=== PATIENT | female | born 1955 | race Caucasian/White ===

== ENCOUNTER 2019-05-07 10:53 | Emergency (ER) | payer OTHER ==
--- OUTSIDE RECORDS SUMMARY | 2019-05-07 10:55 | XMS REPORT ---
:1955 [facility] Address [address] [place] [address] [address]. Ab[address] [place] [address] Care Team Providers Name Role Phone Unavailable Unavailable Unavailable Problems This patient has no known problems. Allergies, Adverse Reactions, Alerts This patient has no known allergies or adverse reactions. Medications This patient has no known medications.
--- NOTE | 2019-05-07 11:46 | EDPHYS ---
Physician Documentation [facility] Name: Gisele Pepe Age: 63 yrs Sex: Female : 1955 Arrival Date: 05/07/2019 Time: 10:56 Bed 14 Private MD: ED Physician Dave Fulton HPI: 05/07 11:41 This 63 yrs old Female presents to ER via Ambulatory with complaints of Foot jr8 Injury. 11:41 The patient presents with pain, swelling, tenderness. The complaints affect the dorsum jr8 of left foot. Context: The problem was sustained at home, resulted from a direct blow, the patient can fully bear weight, the patient is able to ambulate. Onset: The symptoms/episode began/occurred acutely, last night. Modifying factors: The symptoms are alleviated by nothing. the symptoms are aggravated by movement. Associated signs and symptoms: The patient has no apparent associated signs or symptoms. Treatment prior to arrival includes: no previous treatment. Severity of symptoms: At their worst the symptoms were mild, in the emergency department the symptoms are unchanged. The patient has not experienced similar symptoms in the past. The patient has not recently seen a physician. Patient stated that a board fell on her foot last night. This morning swelling started with bruising and mild tenderness . Historical: - Allergies: 11:03 tramadol; hb - Home Meds: 11:03 None [Active]; hb - PMHx: 11:03 None; hb - PSHx: 11:03 Back; ; Appendectomy; hb - Immunization history:: Adult Immunizations up to date. - Social history:: Smoking status: Patient/guardian denies using tobacco. - Ebola Screening: : No symptoms or risks identified at this time. ROS: 11:41 Eyes: Negative for injury, pain, redness, and discharge, ENT: Negative for injury, jr8 pain, and discharge, Neck: Negative for injury, pain, and swelling, Cardiovascular: Negative for chest pain, palpitations, and edema, Respiratory: Negative for shortness of breath, cough, wheezing, and pleuritic chest pain, Abdomen/GI: Negative for abdominal pain, nausea, vomiting, diarrhea, and constipation, Back: Negative for injury and pain, Skin: Negative for injury, rash, and discoloration, Neuro: Negative for headache, weakness, numbness, tingling, and seizure. 11:41 MS/extremity: Positive for ecchymosis, pain, swelling, tenderness, of the dorsum of left foot. Exam: 11:41 Eyes: Pupils equal round and reactive to light, extra-ocular motions intact. Lids and jr8 lashes normal. Conjunctiva and sclera are non-icteric and not injected. Cornea within normal limits. Periorbital areas with no swelling, redness, or edema. ENT: Nares patent. No nasal discharge, no septal abnormalities noted. Tympanic membranes are normal and external auditory canals are clear. Oropharynx with no redness, swelling, or masses, exudates, or evidence of obstruction, uvula midline. Mucous membranes moist. Neck: Trachea midline, no thyromegaly or masses palpated, and no cervical lymphadenopathy. Supple, full range of motion without nuchal rigidity, or vertebral point tenderness. No Meningismus. Cardiovascular: Regular rate and rhythm with a normal S1 and S2. No gallops, murmurs, or rubs. Normal PMI, no JVD. No pulse deficits. Respiratory: Lungs have equal breath sounds bilaterally, clear to auscultation and percussion. No rales, rhonchi or wheezes noted. No increased work of breathing, no retractions or nasal flaring. Abdomen/GI: Soft, non-tender, with normal bowel sounds. No distension or tympany. No guarding or rebound. No evidence of tenderness throughout. Back: No spinal tenderness. No costovertebral tenderness. Full range of motion. Skin: Warm, dry with normal turgor. Normal color with no rashes, no lesions, and no evidence of cellulitis. Neuro: Awake and alert, GCS 15, oriented to person, place, time, and situation. Cranial nerves II-XII grossly intact. Motor strength 5/5 in all extremities. Sensory grossly intact. Cerebellar exam normal. Normal gait. 11:41 Musculoskeletal/extremity: Extremities: grossly normal except: noted in the dorsum of left foot: ecchymosis, pain, swelling, tenderness, ROM: intact in all extremities, Circulation is intact in all extremities. Sensation intact. Vital Signs: 11:03 BP 150 / 62; Pulse 69; Resp 16; Temp 98.1; Pulse Ox 98% on R/A; Weight 66.22 kg; Height hb 5 ft. 3 in. (160.02 cm); Pain 10; 11:03 Body Mass Index 25.86 (66.22 kg, 160.02 cm) [facility]: 11:00 Patient medically screened. jr8 11:41 Data reviewed: vital signs, nurses notes, radiologic studies, plain films, and as a jr8 result, I will discharge patient. Data interpreted: Pulse oximetry: on room air is 98 %. Interpretation: normal. Counseling: I had a detailed discussion with the patient and/or guardian regarding: the historical points, exam findings, and any diagnostic results supporting the discharge/admit diagnosis, radiology results, the need for outpatient follow up, a family practitioner, to return to the emergency department if symptoms worsen or persist or if there are any questions or concerns that arise at home. 05/07 11:04 Order name: XRAY Foot LEFT 3 View; Complete Time: 12:08 jr8 Administered Medications: No medications were administered Disposition: 13:20 Co-signature as Attending Physician, Dave Fulton MD. Disposition: 05/07/19 11:44 Discharged to Home. Impression: Contusion of left foot. - Condition is Stable. - Discharge Instructions: Foot Contusion. - Prescriptions for Ibuprofen 800 mg Oral Tablet - take 1 tablet by ORAL route every 12 hours As needed take with food; 20 tablet. - Medication Reconciliation Form, Thank You Letter, Antibiotic Education, Prescription Opioid Use form. - Follow up: Private Physician; When: As needed; Reason: Recheck today's complaints, Continuance of care, Re-evaluation by your physician. - Problem is new. - Symptoms have improved. Signatures: Dispatcher [employer] EDMS Rd Barrett PA PA jr8 Destiny Gutierrez RN RN Adrianna Rhoades Dave Fulton MD MD Corrections: (The following items were deleted from the chart) 12:10 11:44 05/07/2019 11:44 Discharged to Home. Impression: Contusion of left foot. Condition is Stable. Forms are Medication Reconciliation Form, Thank You Letter, Antibiotic Education, Prescription Opioid Use. Follow up: Private Physician; When: As needed; Reason: Recheck today's complaints, Continuance of care, Re-evaluation by your physician. Problem is new. Symptoms have improved. jr8
--- NOTE | 2019-05-07 11:46 | ER ---
Nurse's Notes [facility] Name: Gisele Pepe Age: 63 yrs Sex: Female : 1955 Arrival Date: 05/07/2019 Time: 10:56 Bed 14 Private MD: Diagnosis: Contusion of left foot Presentation: 05/07 11:01 Presenting complaint: Left foot pain and swelling after dropping wooden board on foot hb yesterday. Transition of care: patient was not received from another setting of care. Onset of symptoms was May 06, 2019. Risk Assessment: Do you want to hurt yourself or someone else? Patient reports no desire to harm self or others. Care prior to arrival: None. 11:01 Method Of Arrival: Ambulatory hb 11:01 Acuity: STEPHEN 4 hb 11:16 Initial Sepsis Screen: Does the patient meet any 2 criteria? No. Patient's initial sepsis screen is negative. Does the patient have a suspected source of infection? No. Patient's initial sepsis screen is negative. Triage Assessment: 11:14 General: Appears in no apparent distress. Pain: Denies pain. Musculoskeletal: Range of wh motion: intact in all extremities, Swelling present in left foot Reports pain in dorsum of left foot since this morning after dropping footboard on Left foot yesterday. Injury Description: swelling. 11:16 General: Behavior is calm, cooperative, appropriate for age. wh Historical: - Allergies: 11:03 tramadol; hb - Home Meds: 11:03 None [Active]; hb - PMHx: 11:03 None; hb - PSHx: 11:03 Back; ; Appendectomy; hb - Immunization history:: Adult Immunizations up to date. - Social history:: Smoking status: Patient/guardian denies using tobacco. - Ebola Screening: : No symptoms or risks identified at this time. Screenin:04 Abuse screen: Denies threats or abuse. Denies injuries from another. Nutritional hb screening: No deficits noted. Tuberculosis screening: No symptoms or risk factors identified. Fall Risk None identified. Assessment: 11:17 General: Appears in no apparent distress. Behavior is calm, cooperative, appropriate wh for age. Pain: Denies pain. Neuro: Level of Consciousness is awake, alert, obeys commands. Cardiovascular: Capillary refill < 3 seconds. Respiratory: Airway is patent Respiratory effort is even, unlabored, Respiratory pattern is regular, symmetrical. GI: Abdomen is flat, non-distended. : No signs and/or symptoms were reported regarding the genitourinary system. EENT: No signs and/or symptoms were reported regarding the EENT system. Derm: Skin is intact, is healthy with good turgor, Skin is pink, warm \T\ dry. normal. Musculoskeletal: Range of motion: intact in all extremities, Swelling present in dorsum of left foot. Vital Signs: 11:03 BP 150 / 62; Pulse 69; Resp 16; Temp 98.1; Pulse Ox 98% on R/A; Weight 66.22 kg; Height hb 5 ft. 3 in. (160.02 cm); Pain 10; 11:03 Body Mass Index 25.86 (66.22 kg, 160.02 cm) hb ED Course: 10:56 Patient arrived in ED. mr 11:00 Rd Barrett PA is PHCP. [facility] 11:00 Dave Fulton MD is Attending Physician. [facility] 11:02 Triage completed. hb 11:03 Arm band placed on. hb 11:11 Adrianna Rhoades is Primary Nurse. 11:16 Patient has correct armband on for positive identification. Bed in low position. Call light in reach. Side rails up X 1. Pulse ox on. NIBP on. 11:16 No provider procedures requiring assistance completed. 11:30 X-ray completed. Portable x-ray completed in exam room. Patient tolerated procedure jb2 well. 11:32 XRAY Foot LEFT 3 View In Process Unspecified. EDMA 12:10 Patient did not have IV access during this emergency room visit. Administered Medications: No medications were administered Outcome: 11:44 Discharge ordered by . jr8 12:00 Discharged to home via wheelchair. 12:00 Condition: good 12:00 Discharge instructions given to patient, Instructed on discharge instructions, follow up and referral plans. medication usage, POC Foot contussion Demonstrated understanding of instructions, follow-up care, medications, POC Prescriptions given X 1. 12:10 Patient left the ED. Signatures: Dispatcher [employer] EDMA Marita Leger Bruce jb2 Rd Barrett PA PA jr8 Destiny Gutierrez RN RN hb [place], Adrianna wh
--- NOTE | 2019-05-07 11:48 | RAD REPORT ---
EXAM DESCRIPTION: RAD - Foot Left 3 View - 05/07/2019 11:30 am CLINICAL HISTORY: Left Foot pain status post fall FINDINGS: No fracture or dislocation is seen. Hallux valgus deformity with soft tissue swelling adjacent to the first MTP joint Osteoporosis. Large calcaneal spur
== END 2019-05-07 12:10 | disposition home or self-care (01) ==
LOC: ER 10:53
DX: S90.32XA Contusion of left foot, initial encounter (principal); W22.8XXA Striking against or struck by other objects, initial encounter; Y93.9 Activity, unspecified; Y92.009 Unspecified place in unspecified non-institutional (private) residence as the place of occurrence of the external cause; Z88.5 Allergy status to narcotic agent
CPT/HCPCS: 99283

== ENCOUNTER 2019-08-27 08:50 | Emergency (ER) | payer OTHER ==
[2019-08-27] MEDS ORDERED: HYDROCODONE/APAP 7.5/325 MG TAB ONE (09:12)
[2019-08-27] MEDS ORDERED: KETOROLAC 30 MG/ML INJ ONE (10:07)
--- NOTE | 2019-08-27 10:11 | RAD REPORT ---
EXAM DESCRIPTION: CT - Spine Lumbar Wo Con - 08/27/2019 9:58 am CLINICAL HISTORY: Back pain, left lower extremity radiculopathy COMPARISON: None. TECHNIQUE: Thin section axial imaging of the lumbar spine was performed. Sagittal and coronal recon struction images were generated and reviewed. All CT scans are performed using dose optimization technique as appropriate and may include automated exposure control or mA/KV adjustment according to patient size. FINDINGS: Lumbar bodies are normal in height. Scattered osteopenic changes are present. No clearly p athologic bone process. No compression fracture. Left-sided L5 spondylolysis is present with severe bilateral facet joint degenerative change at L5-S1 . There is grade 2 spondylolisthesis. Central spinal stenosis to 7-8 mm noted the superior endplate S 1 level. S1 lateral recess stenosis is present more so on the right. The L5-S1 disc space is narrowed with degenerative gas present. The remaining disc levels show no herniation or significant degree of disc bulge. No canal or signifi cant foramen stenoses. Central canal and foramen detail is inherently limited on CT imaging. Significant T12-L1 disc space narrowing present. Degenerative gas is present in the disc space with a nterior sclerotic and spurring changes. Moderate facet degenerative change at L4-5. IMPRESSION: No fracture or pathologic bone process identified. Patient has left-side L5 spondylolysis, severe bilateral facet joint degenerative change and grade 2 spondylolisthesis. These findings result in spinal stenosis to 7-8 mm at the superior S1 level as wel l as S1 lateral recess stenosis. Bilateral L5-S1 foraminal stenosis is likely present. Remainder the exam shows scattered degenerative change but no other significant finding.
--- NOTE | 2019-08-27 10:14 | RAD REPORT ---
EXAM DESCRIPTION: CT - Pelvis Wo Cont - 08/27/2019 9:57 am CLINICAL HISTORY: TRAUMA Back pain, left hip pain COMPARISON: None. TECHNIQUE: Axial 2 millimeter thick images of the pelvis were obtained. Sagittal and coronal reforma tted images were generated and reviewed. The CT scan was performed using dose optimization techniques as appropriate to a performed exam incl uding one or more of the following: Automated exposure control, adjustment of the mA and/or kV accord ing to patient size (this includes techniques or standardized protocols for targeted exams where dose is matched to indication/reason for exam) and use of iterative reconstruction technique. FINDINGS: Lumbar spine and L5-S1 findings are detailed in a separate report. Moderate SI joint degenerative changes are present. No fracture or acute finding of the sacral ala. N o pathologic bone process of the bony pelvis. No fractures identified. No fracture or dislocation of either proximal femur. No AVN or focal femoral head abnormality. No joint effusions or periarticular abnormalities identifiable. Skeletal musculature is symmetric. Postsurgical changes are evident in the lower abdominal wall. Pelv ic floor laxity is present. Uterus is absent. IMPRESSION: No fracture or acute bony pelvis abnormality. No acute or significant left hip joint fin ding. Pelvic floor prolapse.
--- NOTE | 2019-08-27 10:23 | ER ---
Nurse's Notes [facility] Name: Gisele Pepe Age: 64 yrs Sex: Female : 1955 Arrival Date: 08/27/2019 Time: 08:53 Bed 6 Private MD: Diagnosis: Low back pain Presentation: 08/27 08:59 Presenting complaint: Patient states: "I bumped my back and left hip on the counter aa5 yesterday and I've been hurting since then". Pt c/o lower back pain and left hip. Pt appears uncomfortable. Pt states "I am supposed to be having a pelvic anglican surgery on Saturday". 08:59 Transition of care: patient was not received from another setting of care. Onset of aa5 symptoms was August 2019. Risk Assessment: Do you want to hurt yourself or someone else? Patient reports no desire to harm self or others. Care prior to arrival: None. 08:59 Acuity: STEPHEN 3 aa5 08:59 Method Of Arrival: Ambulatory aa5 09:00 Initial Sepsis Screen: Does the patient meet any 2 criteria? No. Patient's initial aa5 sepsis screen is negative. Does the patient have a suspected source of infection? No. Patient's initial sepsis screen is negative. Historical: - Allergies: 09:00 tramadol (blistering ); aa5 - Home Meds: 09:00 None [Active]; aa5 - PMHx: 09:00 None; aa5 - PSHx: 09:00 Back; ; Appendectomy; aa5 - Ebola Screening: : No symptoms or risks identified at this time. Screenin:25 Abuse screen: Denies threats or abuse. Nutritional screening: No deficits noted. aa5 Tuberculosis screening: No symptoms or risk factors identified. Fall Risk None identified. Assessment: 09:00 General: Appears uncomfortable, Behavior is calm, cooperative. Pain: Complains of pain aa5 in lumbar area and left hip Pain does not radiate. Pain currently is 10 out of 10 on a pain scale. Quality of pain is described as sharp, shooting, Pain began 1 day ago. Is continuous, Aggravated by increased activity. Neuro: Level of Consciousness is awake, alert, obeys commands, Oriented to person, place, time, situation. Cardiovascular: Patient's skin is warm and dry. Respiratory: Airway is patent Respiratory effort is even, unlabored, Respiratory pattern is regular, symmetrical. GI: No signs and/or symptoms were reported involving the gastrointestinal system. : No signs and/or symptoms were reported regarding the genitourinary system. EENT: No signs and/or symptoms were reported regarding the EENT system. Derm: Skin is pink, warm \\T\\ dry. Musculoskeletal: Reports pain in left hip. 09:35 Reassessment: Pt to CT . aa5 10:08 Reassessment: Patient is alert, oriented x 3, equal unlabored respirations, skin aa5 warm/dry/pink. Patient states feeling better. Pt states "the pain is a little better but could I get something else please?". [facility] was notified of pt's request. . Pain: Pain currently is 8 out of 10 on a pain scale. 10:35 Reassessment: Patient is alert, oriented x 3, equal unlabored respirations, skin aa5 warm/dry/pink. Patient states feeling better. Vital Signs: 09:05 BP 150 / 91; Pulse 88; Resp 18 S; Temp 98.0(TE); Pulse Ox 99% on R/A; aa5 10:10 BP 143 / 88; Pulse 82; Resp 16 S; Pulse Ox 99% on R/A; aa5 ED Course: 08:53 Patient arrived in ED. mr 08:59 Arm band placed on Patient placed in an exam room, on a stretcher. aa5 08:59 Patient has correct armband on for positive identification. Placed in gown. Bed in low aa5 position. Call light in reach. Side rails up X 1. 09:00 Sherry Gonsales FNP-C is PHCP. kb 09:00 Dave Fulton MD is Attending Physician. kb 09:07 Lora Ojeda, DRU is Primary Nurse. aa5 09:08 Triage completed. aa5 09:45 No provider procedures requiring assistance completed. aa5 09:58 CT Lumbar Spine Wo Con In Process Unspecified. EDMS 09:58 CT Pelvis wo Cont In Process Unspecified. EDMS 10:36 Patient did not have IV access during this emergency room visit. aa5 Administered Medications: 09:19 Drug: [place] (7.5 mg-325 mg) 1 tabs Route: PO; aa5 10:08 Follow up: Response: No adverse reaction; Pain is decreased aa5 10:09 Drug: TORadol 30 mg Route: IM; Site: right deltoid; aa5 10:35 Follow up: Response: No adverse reaction aa5 Outcome: 10:23 Discharge ordered by . franklin 10:35 Discharged to home ambulatory, with significant other. aa5 10:35 Condition: improved 10:35 Discharge instructions given to patient, Instructed on discharge instructions, follow up and referral plans. medication usage, Demonstrated understanding of instructions, follow-up care, medications, Prescriptions given X 1. 10:36 Patient left the ED. aa5 Signatures: Dispatcher [employer] EDMS Sherry Gonsales, BILLING AND INSURANCE COORDINATOR-C BILLING AND INSURANCE COORDINATOR-Marita Martines mr OjedaLora, RN RN aa5 Corrections: (The following items were deleted from the chart) 10:10 09:00 Pain: Complains of pain in lumbar area and left hip Pain does not radiate. aa5 Quality of pain is described as sharp, shooting, Pain began 1 day ago. Is continuous, Aggravated by increased activity, aa5 10:54 10:46 Patient left the ED. aa5 aa5
--- NOTE | 2019-08-27 10:24 | EDPHYS ---
Physician Documentation [facility] Name: Gisele Pepe Age: 64 yrs Sex: Female : 1955 Arrival Date: 08/27/2019 Time: 08:53 Bed 6 Private MD: ED Physician Dave Fulton HPI: 08/27 10:20 This 64 yrs old Female presents to ER via Ambulatory with complaints of Back kb Pain. 10:20 The patient presents with pain that is acute. The symptoms are located in the lumbar kb area. Onset: The symptoms/episode began/occurred yesterday. The pain does not radiate. Associated signs and symptoms: The patient has no apparent associated signs or symptoms. The problem was sustained from a direct blow. Modifying factors: The patient symptoms are alleviated by nothing, the patient symptoms are aggravated by any movement. Severity of symptoms: At their worst the symptoms were moderate, in the emergency department the symptoms are unchanged. The patient has not experienced similar symptoms in the past. The patient has not recently seen a physician. Pt reports lumbar back pain and left hip pain that started yesterday after running into a counter. States "Ifelt everything shift." Pt standing during exam because she says it is too painful to sit and stand again. Pt ambulatory with steady gait. Historical: - Allergies: 09:00 tramadol (blistering ); aa5 - Home Meds: 09:00 None [Active]; aa5 - PMHx: 09:00 None; aa5 - PSHx: 09:00 Back; ; Appendectomy; aa5 - Ebola Screening: : No symptoms or risks identified at this time. ROS: 10:19 Constitutional: Negative for fever, chills, and weight loss, Cardiovascular: Negative kb for chest pain, palpitations, and edema, Respiratory: Negative for shortness of breath, cough, wheezing, and pleuritic chest pain, Abdomen/GI: Negative for abdominal pain, nausea, vomiting, diarrhea, and constipation, : Negative for injury, bleeding, discharge, and swelling, Skin: Negative for injury, rash, and discoloration, Neuro: Negative for headache, weakness, numbness, tingling, and seizure. 10:19 Back: Positive for pain at rest, pain with movement, of the lumbar area. 10:19 MS/extremity: Positive for decreased range of motion, pain, tenderness. Exam: 10:19 Constitutional: This is a well developed, well nourished patient who is awake, alert, kb and in no acute distress. Head/Face: Normocephalic, atraumatic. ENT: Nares patent. No nasal discharge, no septal abnormalities noted. Tympanic membranes are normal and external auditory canals are clear. Oropharynx with no redness, swelling, or masses, exudates, or evidence of obstruction, uvula midline. Mucous membranes moist. Neck: Trachea midline, no thyromegaly or masses palpated, and no cervical lymphadenopathy. Supple, full range of motion without nuchal rigidity, or vertebral point tenderness. No Meningismus. Chest/axilla: Normal chest wall appearance and motion. Nontender with no deformity. No lesions are appreciated. Cardiovascular: Regular rate and rhythm with a normal S1 and S2. No gallops, murmurs, or rubs. Normal PMI, no JVD. No pulse deficits. Respiratory: Lungs have equal breath sounds bilaterally, clear to auscultation and percussion. No rales, rhonchi or wheezes noted. No increased work of breathing, no retractions or nasal flaring. Abdomen/GI: Soft, non-tender, with normal bowel sounds. No distension or tympany. No guarding or rebound. No evidence of tenderness throughout. Skin: Warm, dry with normal turgor. Normal color with no rashes, no lesions, and no evidence of cellulitis. MS/ Extremity: Pulses equal, no cyanosis. Neurovascular intact. Full, normal range of motion. Neuro: Awake and alert, GCS 15, oriented to person, place, time, and situation. Cranial nerves II-XII grossly intact. Motor strength 5/5 in all extremities. Sensory grossly intact. Cerebellar exam normal. Normal gait. 10:19 Back: pain, that is moderate, of the lumbar area, ROM is normal, normal spinal alignment noted. Vital Signs: 09:05 BP 150 / 91; Pulse 88; Resp 18 S; Temp 98.0(TE); Pulse Ox 99% on R/A; aa5 10:10 BP 143 / 88; Pulse 82; Resp 16 S; Pulse Ox 99% on R/A; aa5 MDM: 09:01 Patient medically screened. kb 10:19 Data reviewed: vital signs, nurses notes. Data interpreted: Pulse oximetry: on room air kb is 99 %. Interpretation: normal. Counseling: I had a detailed discussion with the patient and/or guardian regarding: the historical points, exam findings, and any diagnostic results supporting the discharge/admit diagnosis, radiology results, the need for outpatient follow up, a family practitioner, to return to the emergency department if symptoms worsen or persist or if there are any questions or concerns that arise at home. 08/27 09:05 Order name: CT Lumbar Spine Wo Con; Complete Time: 10:14 kb 08/27 09:05 Order name: CT Pelvis wo Cont; Complete Time: 10:17 kb Administered Medications: 09:19 Drug: [place] (7.5 mg-325 mg) 1 tabs Route: PO; aa5 10:08 Follow up: Response: No adverse reaction; Pain is decreased aa5 10:09 Drug: TORadol 30 mg Route: IM; Site: right deltoid; aa5 10:35 Follow up: Response: No adverse reaction aa5 Disposition: 08/27/19 10:23 Discharged to Home. Impression: Low back pain. - Condition is Stable. - Discharge Instructions: Back Injury Prevention, Nwju-fw-Bevd, Back Pain, Adult, Uknl-bz-Rqzn, Back Exercises, Gniq-lj-Ynzs. - Prescriptions for Skelaxin 800 mg Oral Tablet - take 1 tablet by ORAL route every 8 hours As needed; 30 tablet. - Medication Reconciliation Form, Thank You Letter, Antibiotic Education, Prescription Opioid Use form. - Follow up: Emergency Department; When: As needed; Reason: Worsening of condition. Follow up: Private Physician; When: 2 - 3 days; Reason: Recheck today's complaints, Continuance of care, Re-evaluation by your physician. Addendum: 08/28/2019 15:28 Co-signature as Attending Physician, Dave Fulton MD. g s Signatures: Dispatcher [employer] Sherry Freeman FNP-C FNP-Lora Hong RN RN aa5 Dave Fulton MD MD Corrections: (The following items were deleted from the chart) 08/27 10:46 10:23 08/27/2019 10:23 Discharged to Home. Impression: Low back pain. Condition is aa5 Stable. Forms are Medication Reconciliation Form, Thank You Letter, Antibiotic Education, Prescription Opioid Use. Follow up: Emergency Department; When: As needed; Reason: Worsening of condition. Follow up: Private Physician; When: 2 - 3 days; Reason: Recheck today's complaints, Continuance of care, Re-evaluation by your physician. kb
[2019-08-27 10:51] VITALS: BP 150/91; TEMP 98; O2SAT 99
== END 2019-08-27 10:46 | disposition home or self-care (01) ==
LOC: ER 08:50
DX: M54.5 Low back pain (principal); Z88.5 Allergy status to narcotic agent
CPT/HCPCS: 72131; 72192; 96372; 99283

== ENCOUNTER 2020-11-28 12:22 | Day surgery (SDC) | payer OTHER ==
--- OUTSIDE RECORDS SUMMARY | 2020-11-28 12:36 | XMS REPORT | Continuity of Care Document ---
:1955 Author Organization [facility] t Address [address] [place] [address] Care Team Providers Name Role Phone Erum WAGNER L Attending Clinician Payers Payer Name Policy Type Policy Number Effective Date Expiration Date S ource Problems This patient has no known problems. Allergies, Adverse Reactions, Alerts Allergy Allergy Status Severity Reaction(s) Onset Inactive Treating Comm ents Source Name Type Date Date Clinician tramadol DA Active U 2018-11 [facility] [place] Medications This patient has no known medications. Procedures This patient has no known procedures. Encounters Start End Encounter Admission Attending Care Care Encounter Source Date/Time Date/Time Type Type Clinicians Facility Department ID 2019-06-10 2019-06-10 [facility] [id number] 13:25:15 23:59:00 Encounter [email or web address] [id number] Surgical [id number] Specialti [phone] es [address] 2019-06-10 2019-06-10 Office [facility] [id number] 12:45:41 14:39:18 Visit Emery Phel[email or web address] [id number] Surgical [id number] Specialti [phone] es [address] [place] Results Test Description Test Time Test Comments Results Result [facility] e Comments FALLOPIAN 2019-09-04 TUBE,STERILIZATION 13:24:00 --------RUN DATE: 09/07/19 [facility] PAGE 1 RUN TIME: 632 Specimen Inquiry RUN USER: INTERFACE --------PATIENT: BILL ANN LOC: U #: [id number] AGE/SX: 64/F ROOM: [facility] RE09/02/19REG DR: Alfredito Reid MD : [birth year] BED: A DIS: 09/03/19 STATUS: DIS Lisbeth TLOC: -------- SPEC #: [id number] RECD: 09/02/19 STATUS: TESHA GUZMAN #: [id number] CARMEL: 09/02/19- SUBM DR: Alfredito Reid MD ENTERED: 09/03/19 SP TYPE: SEDGEWICKVILLET JULIAN DR: ORDERED: LEVEL II SURGIC CODES: [id number] - FALLOPIAN TUBE PROCEDURES: LEVEL II SURGIC (Incomplete) TISSUES: FALLOPIAN TUBE, NOS - BILATERAL FALLOPIAN TUBES AND OVARIES CLINICAL HISTORY 64 year old, prolapse of vaginal vault (wpd) FINAL DIAGNOSIS Bilateral fallopian tubes and ovaries, salpingo-oophorectomy : bilateral fallopian tubes - no significant pathologic alteration bilateral ovaries - benign cellular fibroma, 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 The specimen consists of fimbriated fallopian tubes (1.5 and 2.5 cm in length) and ovaries (1.8 and 2.5 cm). The outer surfaces are pink-purple and hyperemic with multiple adhesions. The fallopian tubes displays pinpoint lumens. The ovarian stroma is álvarez, nodular and firm with multiple corpora albicans. The larger ovary displays a 2.0 cm unilocular cystic structure. The cyst lining is carpeted by multiple álvarez, firm excrescences, 0.3 - 1.0 cm. There are no areas of hemorrhage or necrosis. The lesion appears confined to the cyst. Client Engagement Specialist sections including the entire lesion are submitted as follows: A1 - short segment of fallopian tube and corresponding smaller ovary, A2 through A6 - long segment of fallopian tube and corresponding larger ovary. ruthy/wpd 09/03/19 @ 1030 CONTINUED ON NEXT PAGE --------RUN DATE: 09/07/19 [facility] PAGE 2 RUN TIME: 632 Specimen Inquiry RUN USER: INTERFACE --------SPEC #: [id number] PATIENT: BILL ANN #[id number] (Continued) -------- Signed Juanis Joy MD 09/04/19 1324 -------- END OF REPORT CHEMISTRY 7 PROFILE 2019-09-03 05:15:00 Test Item Value Reference Range Interpretation Comme nts SODIUM (test code = NA) 138 mEq/L 135-145 N POTASSIUM (test code = K) 5.0 mEq/L 3.5-5.0 N CHLORIDE (test code = CL) 104 mEq/L 100-115 N CARBON DIOXIDE (test code = CO2) 26 mEq/L 22-31 N ANION GAP (test code = GAP) 13.30 10-20 N GLUCOSE (test code = GLU) 121 mg/dL 65-110 H BLOOD UREA NITROGEN (test code = BUN) 18 mg/dL 7-18 N GLOMERULAR FILTRATION RATE (test code = GFR) 55 ml/min >60 L CREATININE (test code = CREAT) 1.0 mg/dL 0.5-1.0 N CALCIUM (test code = CA) 7.8 mg/dL 8.4-10.2 L HGB [id number] 04:54:00 Test Item Value Reference Range Interpretation Comments HEMOGLOBIN (test code = HGB) 10.9 g/dL 10.7-13.9 N HEMATOCRIT (test code = HCT) 34.4 % 32.1-42.1 N CHEMISTRY 7 [id number] 14:49:00 Test Item Value Reference Range Interpretation Comments SODIUM (test code = NA) 139 mEq/L 135-145 N POTASSIUM (test code = K) 3.8 mEq/L 3.5-5.0 N CHLORIDE (test code = CL) 103 mEq/L 100-115 N CARBON DIOXIDE (test code = CO2) 27 mEq/L 22-31 N ANION GAP (test code = GAP) 12.60 10-20 N GLUCOSE (test code = GLU) 90 mg/dL 65-110 N BLOOD UREA NITROGEN (test code = 18 mg/dL 7-18 N BUN) GLOMERULAR FILTRATION RATE (test 84 ml/min >60 N code = GFR) CREATININE (test code = CREAT) 0.7 mg/dL 0.5-1.0 N CALCIUM (test code = CA) 8.9 mg/dL 8.4-10.2 N URINALYSIS [id number] 14:39:00 Test Item Value Reference Range Interpretation Comments UA COLOR (test code = COLU) YELLOW YELLOW UA APPEARANCE (test code = APPU) CLEAR CLEAR UA GLUCOSE DIPSTICK (test code = NEGATIVE NEG DGLUU) UA BILIRUBIN DIPSTICK (test code = NEGATIVE NEG BILU) UA KETONE DIPSTICK (test code = NEGATIVE NEG KETU) UA SPECIFIC GRAVITY (test code = 1.012 1.001-1.035 N SGU) UA BLOOD DIPSTICK (test code = YARIEL) 1+ NEG A UA PH DIPSTICK (test code = JAZMIN) 6.0 5-9 UA PROTEIN DIPSTICK (test code = NEGATIVE NEG PROU) UA UROBILINIOGEN DIPSTICK (test 2.0 mg/dL NEG code = URO) UA NITRITE DIPSTICK (test code = NEG NEG JESE) UA LEUKOCYTE ESTERASE DIPSTICK NEG NEG (test code = LEUU) UA WBC (test code = WBCU) 0-2 #/hpf NONE SEEN UA RBC (test code = RBCU) 0-2 #/hpf NONE SEEN UA EPITHELIAL CELLS (test code = FEW #/HPF RARE-FEW EPIU) UA BACTERIA (test code = BACU) RARE /HPF RARE-FEW UA MUCUS (test code = MUCU) RARE NONE SEEN URINE SAMPLE: CLEAN CATCHCBC W/AUTO [id number] 14:31:00 Test Item Value Reference Range Interpretation Comments WHITE BLOOD CELL (test code = WBC) 6.4 K/mm3 6.6-12.1 L RED BLOOD CELL (test code = RBC) 4.48 M/mm3 3.45-5.01 N HEMOGLOBIN (test code = HGB) 12.1 g/dL 10.7-13.9 N HEMATOCRIT (test code = HCT) 39.1 % 32.1-42.1 N MEAN CELL VOLUME (test code = MCV) 87 fL 84.1-94.8 N MEAN CELL HGB (test code = MCH) 27.0 pg 27-35 N MEAN CELL HGB CONCETRATION (test 30.9 gm/dL 32.2-34.1 L code = MCHC) RED CELL DISTRIBUTION WIDTH (test 13.4 % 12.4-16.5 N code = RDW) PLATELET COUNT (test code = PLT) 222 K/mm3 133-385 N IMMATURE PLATELET FRACTION (test 0.0 % 0.0-10.8 N code = IPF) MEAN PLATELET VOLUME (test code = 10.1 fl 9.1-12.7 N MPV) NEUTROPHIL % (test code = NT%) 63.3 % 56.5-79.4 N LYMPHOCYTE % (test code = LY%) 26.7 % 14.3-34.3 N MONOCYTE % (test code = MO%) 7.5 % 5.1-10.4 N EOSINOPHIL % (test code = EO%) 1.7 % 0.1-3.0 N BASOPHIL % (test code = BA%) 0.3 % 0.1-1.0 N NEUTROPHIL # (test code = NT#) 4.1 K/mm3 LYMPHOCYTE # (test code = LY#) 1.7 K/mm3 MONOCYTE # (test code = MO#) 0.5 K/mm3 EOSINOPHIL # (test code = EO#) 0.11 K/mm3 BASOPHIL # (test code = BA#) 0.0 K/mm3 RBC MORPHOLOGY REQUIRED (test code NORMAL NORMAL = RBCM) PLATELET MORPHOLOGY REQUIRED (test NORMAL NORMAL code = PLTMR) - XR CHEST 2 [id number] 13:55:00 Patient Name: BILL ANN Unit No: [id number] EXAMS: CPT CODE: [id number] XR CHEST 2 V 19821 CHEST RADIOGRAPHS - PA AND LATERAL: COMPARISON: None CLINICAL HISTORY: PRE OP The cardiopericardial silhouette is within normal limits. Moderate size retrocardiac hiatal hernia noted with air-fluid level. Lungs are clear. No vascular congestion or pneumothorax. IMPRESSION: No acute pulmonary abnormality. Moderate-sized hiatal hernia. at 1355 Reported and signed by: Chapin Salmon MD CC: Tri Coleman MD; Alfredito Delgado MDTechnologist: Quiana Watson, RT(MRI) Trnscrbd D/ (6839) t.[id number].[id number] Orig Print D/T: S: 08/11/2019 ([id number]) [facility] NAME: BILL ANN Radiology Department PHYS: Alfredito Valera MD [address] : 1955 AGE: 64 SEX: F [place], [place] [address] LOC: [facility] PHONE #: [phone] EXAM DATE: 08/11/2019 STATUS: PRE SDC FAX #: [phone] RAD NO: Page 1 Signed Report
[2020-11-28] MEDS ORDERED: HEPA 1000U/500MLS 2,000 UNIT/1,000 ML BAG IV ONE (12:47)
[2020-11-28] MEDS ORDERED: NA CHLORIDE 0.9% 500 ML ONE ×2 (14:15→17:17)
[2020-11-28] MEDS ORDERED: ATROPINE SULF 1 MG/10 ML SYR IV ONE (16:11)
[2020-11-28] MEDS ORDERED: HEPARIN 5000 UNIT/ML 1 ML VIAL ONE (16:57)
[2020-11-28] MEDS ORDERED: MIDAZOLAM HCL 2 MG/2 ML INJ ONE (16:57)
[2020-11-28] MEDS ORDERED: HEPARIN 10,000 UNIT/10 ML VIAL IV ONE (16:57)
[2020-11-28] MEDS ORDERED: FENTANYL CITR 100 MCG/2 ML ONE (16:57)
[2020-11-28] MEDS ORDERED: VERAPAMIL HCL 10 MG/4 ML VIAL IV ONE (16:57)
--- NOTE | 2020-11-28 17:49 | OP ---
Date of Procedure: 11/28/2020 Surgeon: TESS SPANN Procedures Performed: 1.Selective coronary angiogram. 2.Left heart catheterization. Indications: 1.Congestive heart failure. 2.Unstable angina. Access: Right radial artery 6-Divehi closed with TR band. Complications: None. Bleeding: Less than 5 mL. Anesthesia: Total sedation time was 15 minutes. Description Of Procedure: After risks, benefits, and alternatives were explained to the patient, she agreed to the procedure and she signed informed consent. The patient was brought into the cardiac c atheterization laboratory, prepped and draped in usual sterile fashion. Then, we used fentanyl and V ersed in incremental doses to achieve adequate moderate sedation. Then, we accessed the right radial artery using a pediatric micropuncture kit and then we put a 6-Divehi slender sheath and a 5-Divehi Galena catheter into the aortic root across the aortic valve into the LV, recorded LVEDP and then upon pullback, there was no difference in pressure. Then, I engaged the left main coronary artery, took standard views of the right coronary artery, took standard views, and removed the catheter and the sh eath, and placed TR band with good hemostasis. Findings: 1.Left main is large and normal. 2.LAD, normal proximal, mid and distal portions. 3.LCX, large dominant vessel, no disease. 4.RCA, small nondominant, no disease. 5.LVEDP of 7 mmHg. Impression: 1.Normal coronary arteries. 2.Normal LVEDP of 7 mmHg. Recommendations: Medical management and evaluate for other causes of chest pain. SR/MODL Voice ID: [id number] Report ID: [id number]
[2020-11-28 19:27] VITALS: TEMP 97.1
[2020-11-28 19:37] VITALS: BP 130/58; O2SAT 97
== END 2020-11-28 19:36 | disposition home or self-care (01) ==
LOC: CCL 12:22
PROVIDERS: ATTEND Internal Medicine
DX: I25.110 Atherosclerotic heart disease of native coronary artery with unstable angina pectoris (principal); I50.9 Heart failure, unspecified; Z20.822 Contact with and (suspected) exposure to COVID-19
CPT/HCPCS: 93458; C1893; J1644 ×2; J2250; J3010; J7040 ×2

== ENCOUNTER 2021-09-13 11:58 | Inpatient (IN) | payer OTHER ==
[2021-09-13 14:01] VITALS: BMI 30.1
[2021-09-13] MEDS ORDERED: ACETAMINOPHEN 500 MG TAB PO PRN (14:08)
[2021-09-13] MEDS ORDERED: SODIUM CHLORIDE 0.9% 10ML INJ IV PRN (14:10)
[2021-09-13 14:53] LABS: Absolute Lymphocytes (CBC) 1.1 K/uL (0.7-4.9); Basophils % 0.6 % (0-1.3); Hematocrit 35.5 % (36.0-45.0); Lymphocytes % 25.7 % (15.3-44.8); RBC Red Blood Cell Count 4.18 M/uL (3.86-4.86)
[2021-09-13] MEDS: NA CHLORIDE 0.9% 1,000 ML IV SCH (15:00)
[2021-09-13 15:15] LABS: ALT/SGPT 188 U/L (12-78); AST/SGOT 90 U/L (15-37); Albumin 3.7 g/dL (3.4-5.0); Alkaline Phosphatase 195 U/L (45-117); BUN Blood Urea Nitrogen 14 mg/dL (7-18); Bicarbonate 27 mmol/L (21-32); Bilirubin Total 0.8 mg/dL (0.2-1.0); Glucose Level 99 mg/dL (74-106); Lipase 201 U/L (73-393); Magnesium 2.2 mg/dL (1.8-2.4); NT PRO-BNP 333 pg/mL (<125); Phosphorus 3.5 mg/dL (2.5-4.9); Potassium 3.5 mmol/L (3.5-5.1); Protein, Total 7.6 g/dL (6.4-8.2); Sodium Level 142 mmol/L (136-145); Troponin I < 0.02 ng/mL (0.0-0.045)
[2021-09-13] MEDS ORDERED: PNEUMOCOCCAL VACCINE 0.5 ML IMVAC ONE (19:00)
--- NOTE | 2021-09-13 20:59 | RAD REPORT ---
EXAM DESCRIPTION: MRI - Cholangiogram - 09/13/2021 3:41 pm CLINICAL HISTORY: Cholelithiasis COMPARISON: Abdomen Exam Complete dated 09/12/2021 FINDINGS: Three-dimensional MRCP was performed using maximum intensity projection reconstruction on the same work station. No intrahepatic biliary tree dilatation is seen. The common bile duct is normal caliber without evide nce of retained stone, stricture or mass. The pancreatic duct is not pathologically dilated. Cholelithiasis is present. Limited T2 sequences through the abdomen demonstrates no bulky adenopathy, significant free fluid or abscess. Moderate hiatal hernia. IMPRESSION: Cholelithiasis and but no biliary ductal dilatation or evidence of choledocholithiasis.
[2021-09-13] MEDS: PANTOPRAZOLE 40 MG INJ IVP SCH (21:39)
[2021-09-13] MEDS: MORPHINE 2 MG/ML SYR IV PRN (21:54)
[2021-09-14] MEDS: NA CHLORIDE 0.9% 1,000 ML IV SCH ×3 (00:54→21:56)
[2021-09-14 06:02] LABS: Basophils % 0.6 % (0-1.3); Hematocrit 33.2 % (36.0-45.0); Lymphocytes % 24.7 % (15.3-44.8); RBC Red Blood Cell Count 3.92 M/uL (3.86-4.86)
[2021-09-14 06:08] LABS: Albumin 3.3 g/dL (3.4-5.0); Bilirubin Total 0.8 mg/dL (0.2-1.0); Potassium 3.8 mmol/L (3.5-5.1); Protein, Total 6.6 g/dL (6.4-8.2)
[2021-09-14] MEDS: PANTOPRAZOLE 40 MG INJ IVP SCH ×2 (10:00→21:56)
[2021-09-14] MEDS: MORPHINE 2 MG/ML SYR IV PRN ×3 (10:45→21:57)
[2021-09-14] MEDS: ONDANSETRON 4 MG/2 ML VIAL IV PRN ×3 (10:45→21:58)
[2021-09-14] MEDS ORDERED: propofoL 200 MG/20 ML VIAL IV ONE ×3 (13:20→13:22)
[2021-09-14] MEDS ORDERED: LIDOCAINE 1% MPF 2 ML AMPULE ONE (13:20)
[2021-09-14] MEDS ORDERED: NA CHLORIDE 0.9% 1,000 ML ONE (13:37)
--- NOTE | 2021-09-14 14:30 | ENDO RPT ---
[address], [address] EGD PROCEDURE REPORT EXAM DATE: 09/14/2021 PATIENT NAME: Gisele Pepe MR#: [id number] BIRTHDATE: 1955 ATTENDING: Judd Galarza Dr STATUS: outpatient QUALITY CONTROL CLERK: Lisette WARNER and Rhiannon Lugo RN INDICATIONS: The patient is a 66 yr old Female here for an EGD due to mid epigastric abdominal pain and nausea and vomiting PROCEDURE PERFORMED: EGD with biopsy MEDICATIONS: Per Anesthesia. TOPICAL ANESTHETIC: none CONSENT: The patient understands the risks and benefits of the procedure and understands that these risks include, but are not limited to: sedation, allergic reaction, infection, perforation and/or bleeding. Alternative means of evaluation and treatment include, among others: physical exam, x-rays, and/or surgical intervention. The patient elects to proceed with this endoscopic procedure. DESCRIPTION OF PROCEDURE: During intra-op preparation period all mechanical medical equipment was checked for proper function. Hand hygiene and appropriate measures for infection prevention was taken. Procedure, possible complications, and alternatives including but not limited to the possibility of bleeding, perforation, tear, infection, sepsis, need for surgery, need for blood transfusion, and anesthesia related complications were explained to the patient. After the risks, benefits and alternatives of the procedure were thoroughly explained, Informed consent was verified, confirmed and timeout was successfully executed by the treatment team. The patient was placed in the left lateral position. The patient was anesthetized with topical anesthesia. Through the anesthetized oropharyngeal area, the scope was passed without any difficulty. The [id number] ([id number]) endoscope was introduced through the mouth and advanced to the third portion of the duodenum. Retroflexed views revealed a large hiatal hernia. The gastroscope was then slowly withdrawn and removed. A large hiatal hernia was found (GEJ at 31 cm, DI at 38 cm from the gums). A 5 mm sessile polyp was found in the fundus. With jumbo forceps, a biopsy was obtained and sent to pathology. Mild gastritis was found in the antrum. Multiple biopsies were obtained and sent to pathology. ADVERSE EVENTS: There were no complications. IMPRESSIONS: 1. Large hiatal hernia (7 cm, GEJ at 31 cm, DI at 38 cm from the gums) 2. 5 mm sessile polyp in the fundus in the large hiatal hernia, s/p biopsy 3. Mild gastritis in the antrum, s/p biopsies RECOMMENDATIONS: 1. await biopsy results 2. acid suppression therapy REPEAT EXAM: Judd Galarza Dr eSigned: Judd Galarza Dr 09/14/2021 2:30 PM cc: Hector Zamorano CPT CODES: ICD9 CODES: PATIENT NAME: Gisele Pepe MR#: [id number]
--- NOTE | 2021-09-14 15:24 | CON ---
Date of Consultation: 09/14/2021 Reason For Consultation: Midepigastric pain, nausea and vomiting with positive ultrasound of the abd omen revealing gallstones in gallbladder. History Of Present Illness: The patient is a 66-year-old white female with history of hypertension, x2, appendectomy, bladder resuspension, hysterectomy, and lower back surgery. The patient was seen in the hospital with 2 days history of intense midepigastric pain, which has been going on o gerard the past few weeks, she reports. The patient states the pain reaches an intensity of 10/10, curr ently 4/10, on pain medications and antiemetics. The patient states that the pain occurred after sea food and this only time the pain really occurs. The patient denies pain waking her from sleep at [facility]. She does have some mild fevers and chills and today she has some slight loose stools. Ultrasoun d revealed gallstones in gallbladder with possible sludge, but there was no pericholecystic fluid nor significantly dilated common bile duct. It appears pancreas numbers were unremarkable. MRCP perfor med after discussion with ER physicians with us, revealed gallstones in gallbladder with normal commo n bile duct. The patient as stated above denies any pain waking her from sleep, melena, hematochezia , hematemesis, chest pain, shortness of breath, seizure, syncope, muscle aches, joint aches, backache s, or dysuria. Past Medical History: Significant for hypertension, x2, appendectomy, bladder resuspension with hysterectomy and lower back surgery. Home Medications: She states her only blood pressure medicines in the hospital include morphine, Tyl enol, Zofran, and Protonix. Allergies: TO TRAMADOL. Social History: She is , 6 children. No tobacco. No alcohol. She is . Family History: Father of sudden , who was working as an upholsterer and was picked by an ambulance, but never admitted to the hospital, in the ambulance. Mother after 3 days after laparoscopic cholecystectomy with emergence of fevers, chills, delirium, multiorgan system failure a judah Grider in [place], [place] at the age of 65. Review of Systems: The patient has midepigastric pain, nausea, vomiting, pain after eating only it appears with fevers, chills, and some loose stools today. If diarrhea persists, we will evaluate, but it could be related to colon problems she is having. The patient denies any chest pain, shortness of breath, seizure, s yncope, lower extremity muscle aches, joint aches, backaches. She does have some lower back pain michelle t is chronic it appears. She has surgery for joint aches there. No depression, anxiety, hemoptysis, hematuria, dysuria, polydipsia. Physical Examination: Vital Signs: The patient is 5 feet, 370 pounds, BMI of 30.1 kg/m2. HEENT: Normocephalic, atraumatic. Anicteric. Pupils equal, round, and reactive to light. Extraocu lar movements are intact. Oropharynx clear. Neck: Supple. No masses. Respirations: Clear to auscultation bilaterally. Cardiac: Regular rate and rhythm. Abdomen: Positive bowel sounds. Soft. Pain in the midepigastric area with guarding. No peritoneal or Pappas signs. Extremities: No clubbing, cyanosis, or edema. 2+ pulses. Neuro: Alert and oriented x3. Grossly nonfocal. 5/5 motor. Sensation intact to light touch. Laboratory Data: The patient has a white count of 4.3, hemoglobin 11.0, hematocrit of 33.2, MCV of 8 4.7, platelet count of 193, polys of 65%, lymphocytes 25%, monocytes 7%, eosinophils 2%. PT of 11.5, INR of 1.0, PTT of 31.8. The patient has a sodium of 144, potassium 3.8, chloride 111, bicarb 24, B UN 13, creatinine of 0.7, glucose 83, calcium 8.8, total bilirubin 0.8, AST of 57, ALT of 133, alkali ne phosphatase 163, total protein 6.6, albumin 3.3. Triglycerides 130, cholesterol 193, LDL of 128, HDL 39, lipase 201 which is normal. COVID-[address] scan of the abdomen and pelvi s performed on September 12, 2 days ago, revealed no acute abdominopelvic findings, prominent lumbosa cral spondylosis at present. Normal spleen, liver, pancreas, adrenals, kidneys noted. Also noted wi th history of appendectomy and hysterectomy findings and a small fat containing umbilical hernia, but no obstruction. Ultrasound of the abdomen performed on September 12, revealed gallstones in gallbla dder with trace amount of gallbladder sludge, common bile duct 6 mm. MRCP performed yesterday reveal ed gallstones in gallbladder, but no biliary ductal dilatation or evidence of choledocholithiasis. Impression: 1.Midepigastric pain, nausea and vomiting could be due to occult cholecystitis versus luminal diseas e such as peptic ulcer disease, gastritis or other. The patient reports pain 10/10 in intensity max, currently 4/10, on pain medicines in the hospital. Pain occurred after eating food. Ultrasound of the abdomen as stated above, reveals gallstones in gallbladder. CT of the abdomen and pelvis was neg ative. MRCP revealed gallstones in gallbladder, normal common bile duct. The patient has fevers, ch ills, and today with some loose stools. Pain does not awake her from sleep. There was no melena, he matochezia, hematemesis, or other evidence of GI bleeding. 2.History of hypertension, x2, appendectomy, bladder resuspension, hysterectomy, and lower back surgery. Recommendations: 1.EGD. 2.Consider HIDA scan. 3.Surgery consult for possible cholecystitis. 4.PPI therapy. 5.Monitor labs. 6.P.r.n. pain medicines and antiemetics to continue. BRIAN/JAYSON Voice ID: [id number] Report ID: [id number]
[2021-09-14] MEDS ORDERED: CEFOXITIN/NS 1gm 1 GM/50 ML BAG IV SCH (17:00)
[2021-09-14] MEDS ORDERED: CEFOXITIN SODIUM 1 GM/VIAL IVPB SCH (17:00)
--- NOTE | 2021-09-14 21:22 | CON ---
Date of Consultation: 09/14/2021 Reason: Abdominal pain. History Of Present Illness: The patient is a 66-year-old female, who has biliary colic quite some ti me but she had a bad attack yesterday and came to the hospital as that workup done consisting of ultr asound, MRCP and EGD and essentially the findings are that she does have a gallstones but common bile duct is normal. Her LFTs are elevated. Her symptoms include epigastric pain associated with nausea , vomiting, postprandial in nature, occasionally going to the back. She did have diarrhea today but no constipation, no blood in her stool. No dysuria or hematuria. No sore throat, runny nose, cough, headaches, or dizziness. No chest pain. No fever or chills. Review of Systems: Otherwise unremarkable. Past Medical History: Significant for hypertension. Past Surgical History: , appendectomy, bladder suspension with hysterectomy and low back schmidt rgery. Allergies: INCLUDE TRAMADOL. Medications: Reviewed. Social History: The patient does not smoke. Does not drink alcohol. Family History: Significant for mother with sudden after lap danette at the age of 65, the etiol ogy of that she is unsure of but it was not related to the surgery. Father suddenly etio logy unknown. Physical Examination: Vital Signs: Stable. She is afebrile. General: She is awake, alert, and oriented x3. Head and Neck: No icterus at this time. Cranial nerves 2 through 12 grossly within normal limits. No neck masses. No JVD. Throat clear. Neck is supple. Chest: Clear. Heart: S1, S2. Abdomen: Soft, nondistended. Positive bowel sounds. Positive epigastric tenderness and no peritoni tis. Extremities: Adequately perfused. Nontender. Neuro: Nonfocal. Laboratory Data: Reviewed. White count is 4000. There is no left shift. H and H are 11 and 33.2. Chemistry reviewed. Her AST and ALT are slightly elevated at 57 and 133. Total bilirubin 0.8. Alk kamar phosphatase is 163. INR 1. She is COVID negative. Endoscopy report reviewed, essentially she had a hiatal hernia. No acute findings. A 5 mm sessile polyp in the fundus, mild gastritis. She had an MRCP done yesterday, which showed cholelithiasis with no biliary duct dilatation or evidence of ch oledocholithiasis. She had an ultrasound done on Saturday, which showed cholelithiasis with trace dax unt of gallbladder sludge. Assessment: A 66-year-old female with acute and chronic cholecystitis and cholelithiasis. Recommendations: We will proceed with laparoscopic cholecystectomy, possible open. The patient unde rstands the risks, benefits, and alternatives and agrees to procedure. /MODL Voice ID: [id number] Report ID: [id number]
--- NOTE | 2021-09-15 02:26 | P.HP ---
Certification for Inpatient Patient admitted to: Inpatient With expected LOS: >2 Midnights Patient will require the following post-hospital care: None Practitioner: I am a practitioner with admitting privileges, knowledge of patient current condition, hospital course, and medical plan of care. Services: Services provided to patient in accordance with Admission requirements found in Title 42 Section 412.3 of the Code of Federal Regulations Patient History Date of Service: 09/13/21 Reason for admission: Acute cholecystitis History of Present Illness: Patient is a 66-year-old female came to the hospital from her primary care provider or is office as she was having abdominal pain. She had workup done including ultrasound of the abdomen which revealed biliary ductal dilatation. Patient was sent to the emergency room for further evaluation. We have scheduled a MRCP for today. Labs are pending. Patient states her pain is improved. Will continue with monitoring at this time. GI consultation will also be obtained. Allergies tramadol Allergy (Verified 11/24/20 12:57) Itching/Hives/Rash Home Medications: Losartan Potassium [Cozaar] 1 tab PO DAILY 09/13/21 - Past Medical/Surgical History -: HTN Past Surgical History: Patient denies surgical history - Family History Father Family History: Reviewed- Non-Contributory - Social History Smoking Status: Never smoker Alcohol use: No CD- Drugs: No Caffeine use: No Review of Systems 10-point ROS is otherwise unremarkable Physical Examination - Vital Signs Temperature: 98.7 F Blood Pressure: 131/65 Pulse: 70 Respirations: 18 Pulse Ox (%): 97 - Physical Exam General: Alert, In no apparent distress, Oriented x3 HEENT: Atraumatic, PERRLA, Mucous membr. moist/pink, EOMI, Sclerae nonicteric Neck: Supple, 2+ carotid pulse no bruit, No LAD, Without JVD or thyroid abnormality Respiratory: Clear to auscultation bilaterally, Normal air movement Cardiovascular: Regular rate/rhythm, Normal S1 S2, No murmurs Gastrointestinal: Normal bowel sounds, Soft and benign, Non-distended, No rebound, No guarding, Tenderness Musculoskeletal: No clubbing, No swelling, No tenderness Integumentary: No rashes Neurological: Normal gait, Normal speech, Normal strength at 5/5 x4 extr, Normal tone, Sensation intact, Cranial nerves 3-12 intact, Normal affect Lymphatics: No axilla or inguinal lymphadenopathy - Studies Laboratory Data (last 24 hrs) 09/14/21 05:38: Sodium 144, Potassium 3.8, BUN 13, Creatinine 0.71, Glucose 83, Total Bilirubin 0.8, AST 57 H, ALT 133 H, Alkaline Phosphatase 163 H, Triglycerides 130, Cholesterol 193, HDL Cholesterol 39 L, Cholesterol/HDL Ratio 4.95 09/14/21 05:38: PT 11.5, INR 1.00, APTT 31.8 09/14/21 05:38: WBC 4.00 L, Hgb 11.0 L, Hct 33.2 L, Plt Count 193 Assessment & Plan - Problems (Diagnosis) (1) Acute cholecystitis Current Visit: Yes Status: Acute (2) Choledocholithiasis Current Visit: Yes Status: Acute (3) History of hypertension Current Visit: Yes Status: Acute - Plan 1. Continue with IV hydration 2. Continue with IV antibiotics 3. Continue with pain control 4. NPO 5. GI consultation; EGD in the a.m. 6. Serial H&H, and we will monitor CBC, BMP, LFTs and lipase along with electrolytes. 7. Strict blood pressure control 8. GI and DVT prophylaxis Discharge Plan: Home Plan to discharge in: Greater than 2 days - Advance Directives Does patient have a Living Will: No Does patient have a Durable POA for Healthcare: No - Code Status/Comfort Care Code Status Assessed: Yes Code Status: Full Code Critical Care: No Time Spent Managing PTS Care (In Minutes): 45
--- NOTE | 2021-09-15 02:30 | P.PN ---
Subjective Date of Service: 09/14/21 Patient is feeling better. The EGD with evidence of cholecystitis. Patient to the OR in the morning for laparoscopic cholecystectomy Review of Systems 10-point ROS is otherwise unremarkable Physical Examination - Vital Signs Temperature: 98.7 F Blood Pressure: 131/65 Pulse: 70 Respirations: 18 Pulse Ox (%): 97 - Physical Exam General: Alert, In no apparent distress, Oriented x3 HEENT: Atraumatic, PERRLA, EOMI Neck: Supple, JVD not distended Respiratory: Clear to auscultation bilaterally, Normal air movement Cardiovascular: Regular rate/rhythm, Normal S1 S2, No murmurs Gastrointestinal: Soft and benign, No rebound, No guarding, Distended, Tenderness Musculoskeletal: No clubbing, No swelling, No tenderness Integumentary: No rashes Neurological: Normal strength at 5/5 x4 extr, Sensation intact, Cranial nerves 3-12 intact Lymphatics: No axilla or inguinal lymphadenopathy - Studies Laboratory Data (last 24 hrs) 09/14/21 05:38: Sodium 144, Potassium 3.8, BUN 13, Creatinine 0.71, Glucose 83, Total Bilirubin 0.8, AST 57 H, ALT 133 H, Alkaline Phosphatase 163 H, Triglycerides 130, Cholesterol 193, HDL Cholesterol 39 L, Cholesterol/HDL Ratio 4.95 09/14/21 05:38: PT 11.5, INR 1.00, APTT 31.8 09/14/21 05:38: WBC 4.00 L, Hgb 11.0 L, Hct 33.2 L, Plt Count 193 Medications List Reviewed: Yes Assessment & Plan - Problems (Diagnosis) (1) Acute cholecystitis Current Visit: Yes Status: Acute (2) Choledocholithiasis Current Visit: Yes Status: Acute (3) History of hypertension Current Visit: Yes Status: Acute - Plan Continue with plan of care as mentioned below: 1. Continue with IV hydration 2. Continue with IV antibiotics 3. Continue with pain control 4. NPO 5. General surgery consultation for laparoscopic cholecystectomy in the morning 6. Serial H&H, and we will monitor CBC, BMP, LFTs and lipase along with electrolytes. 7. Strict blood pressure control 8. GI and DVT prophylaxis Discharge Plan: Home Plan to discharge in: Greater than 2 days - Advance Directives Does patient have a Living Will: No Does patient have a Durable POA for Healthcare: No - Code Status/Comfort Care Code Status: Full Code Critical Care: No Time Spent Managing PTS Care (In Minutes): 35
[2021-09-15] MEDS ORDERED: Ringers Lactate 1,000 ML IV ONE (09:05)
[2021-09-15] MEDS: PANTOPRAZOLE 40 MG INJ IVP SCH ×2 (09:09→20:56)
[2021-09-15] MEDS ORDERED: propofoL 200 MG/20 ML VIAL IV ONE (10:30)
[2021-09-15] MEDS ORDERED: ROCURONIUM 50 MG/5 ML VIAL IV ONE (10:31)
[2021-09-15] MEDS ORDERED: LIDOCAINE 1% MPF 5 ML VIAL ONE (10:31)
[2021-09-15] MEDS ORDERED: FENTANYL CITR 100 MCG/2 ML ONE (10:31)
[2021-09-15] MEDS ORDERED: CEFOXITIN/NS 1gm 1 GM/50 ML BAG ONE (10:36)
[2021-09-15] MEDS ORDERED: GLYCOPYRROLATE 0.2 MG/ML SYR ONE (11:59)
[2021-09-15] MEDS ORDERED: dexAMETHasone 10 MG/ML VIAL ONE (12:00)
[2021-09-15] MEDS ORDERED: KETOROLAC 30 MG/ML INJ ONE (12:00)
[2021-09-15] MEDS ORDERED: NEOSTIGMINE 1 MG/ML -5 ML ONE (12:00)
[2021-09-15] MEDS ORDERED: ONDANSETRON 4 MG/2 ML VIAL ONE (12:00)
--- NOTE | 2021-09-15 12:09 | P.OP ---
Phone Technician: Renita WARNER Preoperative diagnosis: Acute Cholecystitis andCholelithiasis Postoperative diagnosis: same Primary procedure: Lap Rosalina Anesthesia: general Estimated blood loss: min Specimen: GB Findings: as above Complications: None Transferred to: Recovery Room Condition: Good
[2021-09-15] MEDS: MORPHINE 4 MG/ML SYR ONE ×2 (12:25→12:45)
[2021-09-15] MEDS ORDERED: PROMETHAZINE INJ 25 MG/ML AMP ONE (12:28)
[2021-09-15] MEDS: HYDROCODONE/APAP 7.5/325 MG TAB PO PRN (14:46)
[2021-09-15] MEDS: NA CHLORIDE 0.9% 1,000 ML IV SCH (17:00)
[2021-09-15] MEDS: HYDROMORPHONE HCL 1 MG/ML INJ IV PRN ×2 (17:44→21:07)
[2021-09-15] MEDS ORDERED: CEFOXITIN SODIUM 1 GM/VIAL IVPB SCH (18:00)
[2021-09-15] MEDS: CEFOXITIN 1 GM in NA CHLORIDE 0.9% 50 ML IVPB SCH (19:00)
--- NOTE | 2021-09-15 22:23 | OP ---
Date of Procedure: 09/15/2021 Surgeon: Shaun Munson MD Practice Representative: TIMMY Haynes. Preoperative Diagnosis: Acute cholecystitis and cholelithiasis. Postoperative Diagnosis: Acute cholecystitis and cholelithiasis. Procedure: Laparoscopic cholecystectomy. Estimated Blood Loss: Minimal. Specimen: Gallbladder. Finding: As above. Anesthesia: General. Complications: None. Disposition: The patient tolerated the procedure in stable condition and taken to Recovery in good g eneral condition. Procedure In Detail: The patient was brought to the OR and placed in supine position. General anest hesia begun. The patient was prepped and draped in usual sterile fashion. Marcaine 0.5% was infiltr ated locally. A 15-blade was used to make a 1 cm supraumbilical midline incision. Subcutaneous tiss ue was divided. Fascia divided. #1 Vicryl stay suture was placed. Peritoneal cavity was entered wi th sharp and blunt dissection. 12 mm trocar was placed into the peritoneal cavity under direct vision . Pneumoperitoneum was established. Then, 5 mm trocars placed, 1 in the epigastrium just to the rig ht of midline and 2 in the right subcostal region. Laparoscopy revealed a distended gallbladder with evidence of acute inflammation, fundus retracted superiorly. Infundibulum was identified and retrac idris inferolaterally. Cystic duct and cystic artery were clearly identified with blunt dissection. C lips placed. Both structures divided and cautery used to remove the gallbladder from the liver bed. There was oozing from the liver bed, which continued after gallbladder was removed, which was retrie brenda through the umbilicus via an EndoCatch bag. Right upper quadrant was irrigated. Effluent was cl ear. However there was still some oozing noted at the bed. No active bleeding was noted, so Avitene and Surgicel was applied with complete control of the oozing and subsequently all trocars were remov ed under direct vision. Stay sutures were tied to each other to approximate the fascial defect. Sub cu wounds irrigated. Bleeding controlled with cautery. 3-0 chromic was used to approximate the subc utaneous tissue and closed the skin. Sterile dressing applied. The patient was awakened and taken t o Recovery in good general condition. /MODL Voice ID: [id number] Report ID: [id number]
[2021-09-16] MEDS: HYDROMORPHONE HCL 1 MG/ML INJ IV PRN ×6 (00:11→21:04)
[2021-09-16] MEDS: CEFOXITIN 1 GM in NA CHLORIDE 0.9% 50 ML IVPB SCH ×4 (00:19→17:29)
[2021-09-16] MEDS: NA CHLORIDE 0.9% 1,000 ML IV SCH ×3 (03:00→15:42)
[2021-09-16 05:54] LABS: Absolute Lymphocytes (CBC) 0.8 K/uL (0.7-4.9); Basophils % 0.2 % (0-1.3); Lymphocytes % 13.4 % (15.3-44.8); MPV 7.4 fL (7.6-11.3); RBC Red Blood Cell Count 3.85 M/uL (3.86-4.86)
[2021-09-16 06:11] LABS: Magnesium 1.8 mg/dL (1.8-2.4); Phosphorus 2.7 mg/dL (2.5-4.9)
[2021-09-16 06:19] LABS: Bilirubin Total 0.6 mg/dL (0.2-1.0); Potassium 3.8 mmol/L (3.5-5.1); Protein, Total 6.4 g/dL (6.4-8.2)
[2021-09-16] MEDS: PANTOPRAZOLE 40 MG INJ IVP SCH ×2 (09:13→21:03)
--- NOTE | 2021-09-16 10:48 | PN ---
Date of Progress Note: 09/16/2021 Subjective: The patient is awake, alert, complaining of postop right upper quadrant pain. She is to lerating clear liquids as an advance, requiring parenteral pain management. Objective: Vital Signs: Stable, afebrile. Abdomen: Benign. Laboratory Data: Reviewed. Essentially unchanged. Assessment: Status post laparoscopic cholecystectomy for acute cholecystitis and cholelithiasis. Recommendations: Continue IV antibiotics, parenteral pain management. Encourage ambulation and susan ntive spirometry. Probable discharge in 24 hours. /MODL Voice ID: [id number] Report ID: [id number]
--- NOTE | 2021-09-16 13:33 | P.PN ---
Date of Service: 09/15/21 Subjective Patient scheduled for surgery today. Continue to monitor at this time. Review of Systems 10-point ROS is otherwise unremarkable Physical Examination - Vital Signs Reviewed - Physical Exam General: Alert, In no apparent distress, Oriented x3 Respiratory: Clear to auscultation bilaterally, Normal air movement Cardiovascular: Regular rate/rhythm, Normal S1 S2, No murmurs Gastrointestinal: Soft and benign, No rebound, No guarding, Distended, Tenderness Musculoskeletal: No clubbing, No swelling, No tenderness Neurological: Normal strength at 5/5 x4 extr, Sensation intact, Cranial nerves 3-12 intact Assessment & Plan - Problems (Diagnosis) (1) Acute cholecystitis Current Visit: Yes Status: Acute (2) Choledocholithiasis Current Visit: Yes Status: Acute (3) History of hypertension Current Visit: Yes Status: Acute - Plan Continue with plan of care as mentioned below: 1. Schedule for a lap choly today 2. Continue with IV antibiotics and IV hydration 3. Continue with pain control 4. NPO 5. General surgery consultation for laparoscopic cholecystectomy appreciated 6. Continue to monitor labs 7. Strict blood pressure control 8. GI and DVT prophylaxis
--- NOTE | 2021-09-16 13:36 | P.PN ---
Date of Service: 09/16/21 Subjective Patient continues to do well. Labs are stable. Surgery wants to hold patient for 1 more day. Anticipate discharge in the morning. Review of Systems 10-point ROS is otherwise unremarkable Physical Examination - Vital Signs Reviewed - Physical Exam General: Alert, In no apparent distress, Oriented x3 Respiratory: Clear to auscultation bilaterally, Normal air movement Cardiovascular: Regular rate/rhythm, Normal S1 S2, No murmurs Gastrointestinal: Soft and benign, No rebound, No guarding, Distended, Tenderness Musculoskeletal: No clubbing, No swelling, No tenderness Neurological: Normal strength at 5/5 x4 extr, Sensation intact, Cranial nerves 3-12 intact Assessment & Plan - Problems (Diagnosis) (1) Acute cholecystitis Current Visit: Yes Status: Acute (2) Choledocholithiasis Current Visit: Yes Status: Acute (3) History of hypertension Current Visit: Yes Status: Acute - Plan Continue with plan of care as mentioned below: 1. postop day 1. Patient doing well. Anticipate discharge in the morning 2. Continue with IV antibiotics and IV hydration 3. Continue with pain control 4. Advanced diet as tolerated 5. Outpatient General surgery follow 6. Continue to monitor labs 7. Strict blood pressure control 8. GI and DVT prophylaxis
[2021-09-16] MEDS: HYDROCODONE/APAP 7.5/325 MG TAB PO PRN (15:35)
[2021-09-17] MEDS: HYDROMORPHONE HCL 1 MG/ML INJ IV PRN ×3 (00:44→08:47)
[2021-09-17] MEDS: NA CHLORIDE 0.9% 1,000 ML IV SCH ×2 (00:44→09:00)
[2021-09-17] MEDS: CEFOXITIN 1 GM in NA CHLORIDE 0.9% 50 ML IVPB SCH ×4 (00:44→17:56)
[2021-09-17 05:54] LABS: Basophils % 0.4 % (0-1.3); Hematocrit 30.9 % (36.0-45.0); Lymphocytes % 16.1 % (15.3-44.8); MPV 7.3 fL (7.6-11.3); RBC Red Blood Cell Count 3.55 M/uL (3.86-4.86)
[2021-09-17 06:06] LABS: Albumin 2.8 g/dL (3.4-5.0); Bilirubin Total 0.6 mg/dL (0.2-1.0); Magnesium 1.8 mg/dL (1.8-2.4); Potassium 3.5 mmol/L (3.5-5.1)
[2021-09-17] MEDS: PANTOPRAZOLE 40 MG INJ IVP SCH ×2 (08:49→21:57)
[2021-09-17] MEDS ORDERED: FUROSEMIDE 20 MG/ 2ML VIAL IV ONE (09:26)
[2021-09-17] MEDS ORDERED: NA CHLORIDE 0.9% 1,000 ML IV SCH (09:26)
--- NOTE | 2021-09-17 11:05 | RAD REPORT ---
EXAM DESCRIPTION: Ethan Single View09/17/2021 10:18 am CLINICAL HISTORY: Chest pain COMPARISON: September 12 FINDINGS: The lungs appear clear of acute infiltrate. The heart is normal size. Moderate to large h iatal hernia IMPRESSION: No acute abnormalities displayed
[2021-09-17] MEDS ORDERED: HYDROMORPHONE HCL 1 MG/ML INJ IV PRN (11:07)
--- NOTE | 2021-09-17 11:35 | PN ---
Date of Progress Note: 09/17/2021 Subjective: The patient is awake, alert, complaining of cough less since last night and has been on oxygen. Chest x-ray is pending. She was given a little bit of Lasix. Objective: Vital Signs: Stable. Afebrile. Laboratory Data: Reviewed. White count is normal. Abdomen is benign. Assessment: Status post laparoscopic cholecystectomy. Recommendation: Once cleared via medicine, she can be discharged home. Follow up with me in a week. Discharge instructions given. OLAMIDE/JAYSON Voice ID: [id number] Report ID: [id number]
[2021-09-17] MEDS: HYDROCODONE/APAP 7.5/325 MG TAB PO PRN ×3 (13:41→21:57)
[2021-09-17] MEDS: METOPROLOL TAR 25 MG TAB PO SCH (17:56)
--- NOTE | 2021-09-17 23:54 | P.PN ---
Date of Service: 09/17/21 Subjective Patient was hypoxic through the night. O2 sats were in the mid 80s on room air. Chest x-ray with no infiltrates but patient with a hiatal hernia. Patient using incentive spirometry. Give a low dose of a diuretic. Review of Systems 10-point ROS is otherwise unremarkable Physical Examination - Vital Signs Reviewed - Physical Exam General: Alert, In no apparent distress, Oriented x3 Respiratory: Diminished breath sound bilaterally Cardiovascular: Regular rate/rhythm, Normal S1 S2, No murmurs Gastrointestinal: Soft and benign, No rebound, No guarding, Distended, Tenderness Musculoskeletal: No clubbing, No swelling, No tenderness Neurological: Normal strength at 5/5 x4 extr, Sensation intact, Cranial nerves 3-12 intact Assessment & Plan - Problems (Diagnosis) (1) Acute cholecystitis Current Visit: Yes Status: Acute (2) Choledocholithiasis Current Visit: Yes Status: Acute (3) Hypoxemia Current Visit: Yes Status: Acute (4) History of hypertension Current Visit: Yes Status: Chronic - Plan Continue with plan of care as mentioned below: 1. Postop day #2. Patient hypoxic. Chest x-ray with a hiatal hernia but no pneumonia 2. Hep-Lock IV and continue antibiotic 3. Continue with pain control 4. Advanced diet as tolerated 5. Outpatient General surgery follow 6. Continue to monitor labs 7. Strict blood pressure control 8. GI and DVT prophylaxis
[2021-09-18] MEDS: CEFOXITIN 1 GM in NA CHLORIDE 0.9% 50 ML IVPB SCH ×2 (00:18→05:20)
[2021-09-18] MEDS: HYDROCODONE/APAP 7.5/325 MG TAB PO PRN ×2 (05:14→09:18)
[2021-09-18] MEDS: METOPROLOL TAR 25 MG TAB PO SCH (05:19)
[2021-09-18 06:16] LABS: Absolute Lymphocytes (CBC) 0.9 K/uL (0.7-4.9); Basophils % 0.3 % (0-1.3); Hematocrit 28.3 % (36.0-45.0); Lymphocytes % 18.6 % (15.3-44.8); MPV 7.1 fL (7.6-11.3); RBC Red Blood Cell Count 3.31 M/uL (3.86-4.86)
[2021-09-18 06:27] LABS: Albumin 2.7 g/dL (3.4-5.0); Bilirubin Total 0.6 mg/dL (0.2-1.0); Magnesium 1.8 mg/dL (1.8-2.4); Potassium 3.4 mmol/L (3.5-5.1); Protein, Total 5.7 g/dL (6.4-8.2)
[2021-09-18] MEDS ORDERED: PANTOPRAZOLE 40MG TABLET PO SCH (06:30)
[2021-09-18 08:23] VITALS: BP 135/68; TEMP 97.7
[2021-09-18 08:41] VITALS: O2SAT 94
[2021-09-18] MEDS ORDERED: LOSARTAN POTASSIUM 50 MG TABLET PO SCH (09:00)
--- NOTE | 2021-09-18 10:24 | P.DS ---
Admission Date: 09/13/21 Discharge Date: 09/18/21 Primary Care Provider: Dr. Gonzalez Disposition: ROUTINE DISCHARGE Discharge Condition: GOOD Reason for Admission: Acute cholecystitis Consultations: Surgery-Dr. Munson GI-Dr. Galarza Procedures: COVID: negative MRCP: COMPARISON: Abdomen Exam Complete dated 09/12/2021 FINDINGS: Three-dimensional MRCP was performed using maximum intensity projection reconstruction on the same work station. No intrahepatic biliary tree dilatation is seen. The common bile duct is normal caliber without evidence of retained stone, stricture or mass. The pancreatic duct is not pathologically dilated. Cholelithiasis is present. Limited T2 sequences through the abdomen demonstrates no bulky adenopathy, significant free fluid or abscess. Moderate hiatal hernia. IMPRESSION: Cholelithiasis and but no biliary ductal dilatation or evidence of choledocholithiasis. Endoscopy: No complications noted. Findings: Large hiatal hernia(7 cm, GE J at 31 cm, DI at 38 cm from the gums) 5 mm sessile polyp in the fundus of the large hiatal hernia status post biopsy Mild gastritis in the antrum status post biopsies Surgery: Date: 09/15/21 12:06 Preoperative diagnosis: Acute Cholecystitis andCholelithiasis Postoperative diagnosis: same Primary procedure: Lap Rosalina Anesthesia: general Estimated blood loss: min Specimen: GB Findings: as above Complications: None Medical Problem List: Abdominal pain secondary to acute cholecystitis with cholelithiasis status post laparoscopic cholecystectomy with MRCP showing no evidence of choledocholithiasis GERD with large hiatal hernia status post EGD 5 mm sessile polyp status post EGD Hypertension Obesity, BMI 30.1 Brief History of Present Illness: 66-year-old female presented to the hospital with abdominal pain. Her work-up included ultrasound of the abdomen which revealed biliary ductal dilatation. Patient was scheduled for MRCP upon admission. Patient was admitted for further evaluation. Surgery and GI were consulted. Hospital Course: Patient was admitted for abdominal pain. Patient recently had ultrasound showing biliary ductal dilatation. Patient was admitted for further evaluation and treatment. Patient was seen and evaluated by GI and surgery. MRCP showed cholelithiasis without evidence of biliary ductal dilatation or choledocholithiasis. GI performed endoscopy. Endoscopy findings showed large hiatal hernia, 5 mm sessile polyp and gastritis. Biopsies were obtained. Surgery recommended surgical intervention. Laparoscopic cholecystectomy was performed. Patient tolerated procedure well. Patient has done well postoperatively. At discharge patient tolerating diet. No significant abdominal pain noted. Patient will be discharged home. Patient will continue with GI soft diet. Recommend no heavy lifting, pushing or pulling. Postsurgical recommendations provided. Recommend follow-up with PCP in 1 to 2 weeks to follow-up hospitalization. Recommend follow-up with surgery in 1 week to follow-up this hospitalization. Patient may continue with incentive spirometer at home. Patient may shower with Steri-Strips. She is to keep Steri-Strips in place. As mentioned above patient found to have GERD with large hiatal hernia and gastritis. 5 mm sessile polyp noted on endoscopy. Biopsies were obtained. At discharge patient will continue with Protonix 40 mg daily. Education on hiatal hernia will be provided. Recommend follow-up with GI as an outpatient to follow-up biopsy report. Patient with underlying hypertension. Blood pressure stable. At discharge she will continue with her medication losartan 100 mg daily. Recommend to maintain blood pressure less than 130/80. Further adjustment can be done by her PCP. Lifestyle modification education provided. Vital Signs/Physical Exam: Temp Pulse Resp BP Pulse Ox 97.7 F 65 16 135/68 95 09/18/21 08:00 09/18/21 08:00 09/18/21 08:00 09/18/21 08:00 09/18/21 08:00 General: Alert, In no apparent distress, Oriented x3, Cooperative HEENT: Atraumatic Neck: Supple Respiratory: Clear to auscultation bilaterally, Normal air movement Cardiovascular: Normal pulses, Regular rate/rhythm Gastrointestinal: Normal bowel sounds, No tenderness, No masses, Other (Postsurgical changes noted. No significant abdominal pain) Integumentary: No tenderness/swelling, No erythema, No warmth, No cyanosis Neurological: Normal speech, Normal strength at 5/5 x4 extr, Normal tone, Normal affect Laboratory Data at Discharge: WBC 4.60 K/uL (4.3-10.9) D 09/18/21 05:50 Hgb 9.5 g/dL (12.0-15.0) L 09/18/21 05:50 Hct 28.3 % (36.0-45.0) L 09/18/21 05:50 Plt Count 166 K/uL (152-406) 09/18/21 05:50 PT 11.5 SECONDS (9.5-12.5) 09/14/21 05:38 INR 1.00 09/14/21 05:38 APTT 31.8 SECONDS (24.3-36.9) 09/14/21 05:38 Sodium 140 mmol/L (136-145) 09/18/21 05:50 Potassium 3.4 mmol/L (3.5-5.1) L 09/18/21 05:50 BUN 6 mg/dL (7-18) L 09/18/21 05:50 Creatinine 0.71 mg/dL (0.55-1.3) 09/18/21 05:50 Glucose 103 mg/dL (74-106) 09/18/21 05:50 Phosphorus 2.7 mg/dL (2.5-4.9) 09/16/21 05:13 Magnesium 1.8 mg/dL (1.8-2.4) 09/18/21 05:50 Total Bilirubin 0.6 mg/dL (0.2-1.0) 09/18/21 05:50 AST 34 U/L (15-37) 09/18/21 05:50 ALT 72 U/L (12-78) 09/18/21 05:50 Alkaline Phosphatase 121 U/L (45-117) H 09/18/21 05:50 Troponin I < 0.02 ng/mL (0.0-0.045) 09/13/21 14:42 Triglycerides 130 mg/dL (<150) 09/14/21 05:38 Cholesterol 193 mg/dL (<200) 09/14/21 05:38 HDL Cholesterol 39 mg/dL (40-60) L 09/14/21 05:38 Cholesterol/HDL Ratio 4.95 09/14/21 05:38 Lipase 231 U/L (73-393) 09/17/21 05:39 Home Medications: Losartan Potassium [Cozaar] 1 tab PO DAILY 09/13/21 Pantoprazole [Protonix Tab*] 40 mg PO DAILYAC #30 tab 09/18/21 New Medications: Pantoprazole [Protonix Tab*] 40 mg PO DAILYAC #30 tab Physician Discharge Instructions: Patient was admitted for abdominal pain. Patient recently had ultrasound showing biliary ductal dilatation. Patient was admitted for further evaluation and treatment. Patient was seen and evaluated by GI and surgery. MRCP showed cholelithiasis without evidence of biliary ductal dilatation or choledocholithiasis. GI performed endoscopy. Endoscopy findings showed large hiatal hernia, 5 mm sessile polyp and gastritis. Biopsies were obtained. Surgery recommended surgical intervention. Laparoscopic cholecystectomy was performed. Patient tolerated procedure well. Patient has done well postoperatively. At discharge patient tolerating diet. No significant abdominal pain noted. Patient will be discharged home. Patient will continue with GI soft diet. Recommend no heavy lifting, pushing or pulling. Postsurgical recommendations provided. Recommend follow-up with PCP in 1 to 2 weeks to follow-up hospitalization. Recommend follow-up with surgery in 1 week to follow-up this hospitalization. Patient may continue with incentive spirometer at home. Patient may shower with Steri-Strips. She is to keep Steri-Strips in place. As mentioned above patient found to have GERD with large hiatal hernia and gastritis. 5 mm sessile polyp noted on endoscopy. Biopsies were obtained. At discharge patient will continue with Protonix 40 mg daily. Education on hiatal hernia will be provided. Recommend follow-up with GI as an outpatient to follow-up biopsy report. Patient with underlying hypertension. Blood pressure stable. At discharge she will continue with her medication losartan 100 mg daily. Recommend to maintain blood pressure less than 130/80. Further adjustment can be done by her PCP. Lifestyle modification education provided. Diet: Regular Activity: No lifting more than 10 lbs Followup: Shaun Munson MD [ACTIVE - CAN ADMIT] - 1 Week Time spent managing pt's care (in minutes): 55
== END 2021-09-18 10:58 | disposition home or self-care (01) | DRG 419 ==
LOC: 2ND 13:32
PROVIDERS: ADMIT Internal Medicine; ATTEND Family Medicine
PROC: 0DB78ZX Excision of Stomach, Pylorus, Via Natural or Artificial Opening Endoscopic, Diagnostic (ICD-10-PCS; 2021-09-14)
PROC: 0FT44ZZ Resection of Gallbladder, Percutaneous Endoscopic Approach (ICD-10-PCS; principal; 2021-09-15 10:15)
DX: K80.12 Calculus of gallbladder with acute and chronic cholecystitis without obstruction (principal); K44.9 Diaphragmatic hernia without obstruction or gangrene; K31.7 Polyp of stomach and duodenum; K29.70 Gastritis, unspecified, without bleeding; K21.9 Gastro-esophageal reflux disease without esophagitis; E66.9 Obesity, unspecified; I10 Essential (primary) hypertension; R09.02 Hypoxemia; R19.7 Diarrhea, unspecified; Z90.49 Acquired absence of other specified parts of digestive tract; Z68.30 Body mass index [BMI] 30.0-30.9, adult; Z90.710 Acquired absence of both cervix and uterus; Z79.899 Other long term (current) drug therapy; Z88.5 Allergy status to narcotic agent; Z20.822 Contact with and (suspected) exposure to COVID-19
CPT/HCPCS: 36415; 71045; 74177; 74181; 76700; 80053; 80061; 83690; 83735; 83880; 84100; 84145; 84484; 85025; 85610; 85730; 88304; 88305; 88312; 94010; C9113; J0694; J1100; J1170; J1940; J2270; J2405; J2550; J2704; J2710; J3010; J7030; J7120; Q9967; U0003

== ENCOUNTER 2022-03-14 07:24 | Day surgery (SDC) | payer OTHER ==
[2022-03-13 12:31] LABS: Absolute Lymphocytes (CBC) 1.6 K/uL (0.7-4.9); Hematocrit 35.7 % (36.0-45.0); Lymphocytes % 30.7 % (15.3-44.8); MPV 7.4 fL (7.6-11.3); RBC Red Blood Cell Count 4.24 M/uL (3.86-4.86)
[2022-03-13 12:45] LABS: Potassium 3.7 mmol/L (3.5-5.1)
--- NOTE | 2022-03-13 12:55 | RAD REPORT ---
EXAM DESCRIPTION: RAD - Chest Pa And Lat (2 Views) - 03/13/2022 12:45 pm CLINICAL HISTORY: PRE PROCEDURAL SCREENING, pending hernia repair, history of hypertension COMPARISON: Portable 09/17/2021 TECHNIQUE: Frontal and lateral views of the chest were obtained. FINDINGS: The lungs are fibrotic but clear of an acute process. Interstitial pattern matches compari son. Trachea is midline. Moderately large hiatal hernia is present. Heart size is normal and central vas culature is within normal limits. No pleural effusion or pneumothorax seen. No acute bony finding n oted. No aortic abnormality. IMPRESSION: No acute cardiopulmonary process. Patient has a moderately large hiatal hernia.
[2022-03-14] MEDS ORDERED: BUPIVACAINE 0.5% PF 10 ML VIAL SQ ONE (07:31)
[2022-03-14] MEDS ORDERED: BUPIVACAINE 0.5% PF 10 ML VIAL ONE (07:42)
[2022-03-14] MEDS ORDERED: CEFAZOLIN SODIUM 1 GM/VIAL ONE (07:44)
[2022-03-14] MEDS ORDERED: Ringers Lactate 1,000 ML IV ONE (07:44)
[2022-03-14] MEDS ORDERED: propofoL 200 MG/20 ML VIAL IV ONE (08:01)
[2022-03-14] MEDS ORDERED: KETOROLAC 30 MG/ML INJ ONE (08:01)
[2022-03-14] MEDS ORDERED: MIDAZOLAM HCL 2 MG/2 ML INJ ONE (08:01)
[2022-03-14] MEDS ORDERED: dexAMETHasone 10 MG/ML VIAL ONE ×2 (08:01→09:57)
[2022-03-14] MEDS ORDERED: FENTANYL CITR 100 MCG/2 ML ONE (08:01)
[2022-03-14] MEDS ORDERED: ONDANSETRON 4 MG/2 ML VIAL ONE ×2 (08:02→13:34)
[2022-03-14] MEDS ORDERED: LIDOCAINE 1% MPF 30 ML VIAL ONE (08:02)
[2022-03-14] MEDS ORDERED: ROCURONIUM 50 MG/5 ML VIAL IV ONE (08:56)
[2022-03-14] MEDS ORDERED: EPHEDRINE SULF 50 MG/ML VIAL ONE (09:23)
[2022-03-14] MEDS ORDERED: BUPIVACAINE 0.25% PF 10 ML VIAL ONE (09:57)
[2022-03-14] MEDS ORDERED: HYDROCODONE/APAP 7.5/325 MG TAB PO PRN (10:44)
--- NOTE | 2022-03-14 10:44 | P.PN ---
Date of Service: 03/14/22 Preop diagnosis: Incarcerated umbilical hernia Postop diagnosis: Same Procedure performed: Laparoscopic assisted repair of incarcerated umbilical hernia Surgeon: Shaun Munson MD Crown Presser: Logan SNYDER Estimated blood loss: Minimal Specimen: Hernia sac Findings: As above Anesthesia: General Complications: None Drains: None Fluids and blood products: Nonapplicable Disposition: Recovery room Operative note: Patient brought to the OR and placed in the supine position. General anesthesia begun and patient prepped and draped in the usual sterile fashion. Marcaine 0.5% infiltrated locally. 15 blade used to make a 2 cm left upper quadrant incision. Subcutaneous tissue divided and fascia identified and divided. #1 Vicryl stay suture placed. Peritoneal cavity entered with sharp and blunt dissection. 12 mm trocar placed into the peritoneal cavity under direct vision. And a 5 mm trocar placed in the left lower quadrant under direct vision. Laparoscopy revealed extensive adhesions at the umbilicus, omental in nature, with the incarcerated omentum inside of supraumbilical hernia. LigaSure used to divide all the adhesions and freed away from the abdominal wall. And all the omentum inside the hernia sac was excised as well reduced into the peritoneal cavity. Then a 4 cm incision was made over the hernia just above the umbilicus subcutaneous tissue divided. Hernia sac identified and excised and sent to pathology as specimen. A 4 cm defect remained in the fascia. This was closed primarily with #1 running PDS. Then pneumoperitoneum reestablished and then a Bard oval-shaped mesh was placed in the peritoneal cavity and deployed in the standard fashion. It was secured with sorbitex tacking device. Complete coverage of the hernia defect was accomplished with good borders. There is no evidence of bleeding or bowel injury appreciated. All trochars removed under direct vision. #1 Vicryl used to close the fascial defect in the left upper quadrant. Subcutaneous wounds irrigated bleeding controlled cautery. 3-0 chromic used to approximate subcutaneous tissue and closed skin. Sterile dres sing applied. Patient awakened and taken to recovery in good general condition. CC: Dr. Gonzalez's office
[2022-03-14] MEDS ORDERED: Mastisol Adhesive Liq ONE (10:45)
[2022-03-14] MEDS: HYDROMORPHONE HCL 1 MG/ML INJ ONE ×5 (11:41→11:59)
[2022-03-14 12:06] VITALS: TEMP 97.6
--- NOTE | 2022-03-14 12:56 | EKG ---
Test Date: 2022-03-13 Test Time: 11:35:10 Costume Technician: ANNALISAOT MEASUREMENT RESULTS: Intervals: Rate: 65 HI: 152 QRSD: 86 QT: 406 QTc: 422 [place]: P: 32 HI: 152 QRS: -15 T: 33 INTERPRETIVE STATEMENTS: Normal sinus rhythm Normal ECG No previous ECG available for comparison Electronically Signed On 03-14-22 12:52:18 CDT by Guy Shrestha
[2022-03-14] MEDS ORDERED: ONDANSETRON 4 MG/2 ML VIAL IV ONE (13:30)
[2022-03-14] MEDS ORDERED: HYDROCODONE/APAP 7.5/325 MG TAB PO ONE (14:00)
[2022-03-14] MEDS ORDERED: HYDROCODONE/APAP 7.5/325 MG TAB ONE (14:08)
[2022-03-14 14:28] VITALS: BP 132/53; O2SAT 98
== END 2022-03-14 14:20 | disposition home or self-care (01) ==
LOC: OR 07:24
PROVIDERS: ATTEND Surgery
PROC: 0DNU4ZZ Release Omentum, Percutaneous Endoscopic Approach (ICD-10-PCS; 2022-03-14)
PROC: 0WQF4ZZ Repair Abdominal Wall, Percutaneous Endoscopic Approach (ICD-10-PCS; principal; 2022-03-14 09:00)
DX: K42.0 Umbilical hernia with obstruction, without gangrene (principal); K66.0 Peritoneal adhesions (postprocedural) (postinfection); Z20.822 Contact with and (suspected) exposure to COVID-19
CPT/HCPCS: 93005; 85025; 80048; 36415; 88302; 71046; 49653; 49329; U0003; J2704; J2250; J3010; J1100 ×2; J1170 ×2; J7120; J2405 ×3; J0690

== ENCOUNTER 2023-04-20 05:07 | Emergency (ER) | payer OTHER ==
--- OUTSIDE RECORDS SUMMARY | 2023-04-20 05:12 | XMS REPORT | Continuity of Care Document ---
:1955 Author Organization [facility] t Address [address] [place] [address] Care Team Providers Name Role Phone Jessi WAGNER, Andres Elder Primary Care Physician JUDITH CARR Attending Clinician Unavailable Judith Carr MD Attending Clinician Doctor Unassigned, [place] Attending Clinician Unavailable [place], [facility] Main Attending Clinician Unavailable Emery Danielson MD Attending Clinician JUDITH CARR Admitting Clinician Unavailable Judith Carr MD Admitting Clinician Payers Payer Name Policy Type Policy Number Effective Date Expiration Date S [facility] MEDICARE PART A \\T\\ [id number] 2018 B 00:00:00 ELDORA [id number] 2018 BENEFITS 00:00:00 Problems Condition Condition Condition Status Onset Resolution Last Treating Co mments Source Name Details Category Date Date Treatment Clinician Date No known No known Disease Unive rs active active ity of problems problems [facility] Allergies, Adverse Reactions, Alerts Allergy Allergy Status Severity Reaction(s) Onset Inactive Treating Comm ents Source Name Type Date Date Clinician tramadol DA Active U 2018-11 [facility] [place] Tramadol Propensi Active Hives Hives and Uni vers ty to 05-19 blisters ity of adverse 00:00: [place] reaction 00 Medical s Branch TRAMADOL DRUG Active Hives 2018- Univers INGREDI 05-19 ity of 00:00: [place] 00 Medical Branch Social History Social Habit Start Date Stop Date Quantity Comments Source Exposure to 2022-11-23 2022-12-03 Not sure [facility]-CoV-2 00:00:00 11:41:00 [place] Medical (event) Branch Alcohol intake 2022-12-03 2022-12-03 Current University of 00:00:00 00:00:00 non-drinker of [facility] [place] [facility] alcohol (finding) [place] Tobacco use and 2018-11-14 2018-11-14 Smokeless tobacco Un iversity of exposure 00:00:00 00:00:00 non-user [facility] Sex Ass[birth year] At [birth year] Univers[facility] of 00:00:00 00:00:00 [facility] Smoking Status Start Date Stop Date Source Never smoked tobacco [facility] Medications Ordered Filled Start Stop Current Ordering Indication Dosage Frequency Signature Comments Components Source Medication Medication Date Date Medication? Clinician (SIG) Name Name lactated Yes 1000mL at 50 Univer s ringers IV 1-26 mL/hr, ity of infusion 18:15: 1[place]000 [place] 1[place] 00 IV Medical Infusion, Branch CONTINUOUS , Starting on Lianne 12/06/22 at 1215, Until Discontinu ed, Routine, PACU lactated 2022- No 1000mL at 50 Unive rs ringers IV -06 12-26 mL/hr, ity of infusion 18:15: 20:20 1,000 mL, [place] 1,000 mL 00 :05 IV Medical Infusion, Branch CONTINUOUS , Starting on Lianne 12/06/22 at 1215, Until [place]ianne 12/06/22 at 1420, Routine, PACU ondansetron Yes 4mg 4 mg, Slow Univers (ZOFRAN 12-06 IV Push, ity of (PF)) 18:12: PRN, 1 [place] injection 4 31 dose, Medical mg Starting Branch on Lianne 12/06/22 at 1212, Until Discontinu ed, Routine, Nausea and Vomiting (N/V), PACU ondansetron 2022- No 4mg 4 mg, Slow Univers (ZOFRAN 12-06 IV Push, ity of (PF)) 18:12: 20:20 PRN, 1 [place] injection 4 31 :05 dose, Medical mg Starting Branch on Lianne 12/06/22 at 1212, Until [place]ian[place] 12/06/22 at 1420, Routine, Nausea and Vomiting (N/V), PACU NaCl 0.9% 0 Yes PRN, Univers (NS) 12-06 Starting ity of injection 17:19: on Lianne [place] 00 12/06/22 at Medical 1119, Branch Until Discontinu ed, Routine, Intra-op NaCl 0.9% 2022- No PRN, Univers (NS) 12-06 Starting ity of injection 17:19: 20:20 on Lianne [place] 00 :05 12/06/22 at Medical 1119, Branch Until [place]ian[place] 12/06/22 at 1420, Routine, Intra-op neomycin-po 2022-0 Yes PRN, [facility] lymyxin-dex 12-06 Starting ity of amethasone 17:18: on Lianne [place] (MAXITROL) 00 12/06/22 at Med ical 3.5 1118, Branch mg/g-10,000 Until unit/g-0.1 Discontinu % ed, ophthalmic Routine, ointment Intra-op neomycin-po 2022- No PRN, [facility] lymyxin-dex 12-06 Starting ity of amethasone 17:18: 20:20 [place] (MAXITROL[place] 00 :05 12/06/22 at Med ical 3.5 1118, Branch mg/g-10,000 Until [place]ianne unit/g-0.1 12/06/22 at % 1420, ophthalmic Routine, ointment Intra-op chondroitin 2022-0 Yes PRN, [facility] sulf-sod 12-06 Starting ity of hyaluronate 17:12: on [place] (DUOVISC 00 12/06/22 at Medic al VISCO 1112, Branch ELASTIC) Until intraocular Discontinu injection ed, Routine, Intra-op chondroitin 2022-0 2022- No PRN, Unive rs sulf-sod 12-06 Starting ity of hyaluronate 17:12: 20:20 on [place]ian[place] (DUOVISC 00 :05 12/06/22 at Medic al VISCO 1112, Branch ELASTIC) Until [place]ianne intraocular 12/06/22 at injection 1420, Routine, Intra-op EPINEPHrine 2022-0 Yes PRN, Univer s (PF) 12-06 Starting ity of 1:1,000 (1 17:11: on Lianne [place] mg/mL) 00 12/06/22 at [facility] (ADRENALIN 1111, Branch (PF)) Until injection Discontinu ed, Routine, Intra-op EPINEPHrine 2022-0 2022- No PRN, Unive rs (PF) 12-06 Starting ity of 1:1,000 (1 17:11: 20:20 [place] mg/mL) 00 :05 12/06/22 at [facility] (ADRENALIN 1111, Branch (PF)) Until [place]ian[place] injection 12/06/22 at 1420, Routine, Intra-op gentamicin 2022-0 Yes PRN, Univers injection 12-06 Starting ity of 17:09: on Lianne [place] 00 12/06/22 at [facility] 1109, Branch Until Discontinu ed, ALEJANDRO, Intra-op dexamethaso 0 Yes PRN, Univer s ne 12-06 Starting ity of (DECADRON 17:09: on Lianne [place] PHOSPHATE) 12/06/22 at [facility] ical injection 1109, Branch Until Discontinu ed, Routine, Intra-op ceFAZolin 0 Yes PRN, Univers (ANCEF) 12-06 Starting ity of injection 17:09: on Lianne [place] 00 12/06/22 at [facility] 1109, Branch Until Discontinu ed, ALEJANDRO, Intra-op balanced 2022-0 Yes PRN, Univers salt soln 12-06 Starting ity of no.2 irrig. 17:09: on [place] (BSS[place] 00 12/06/22 at [facility] ophthalmic 1109, Branch solution Until Discontinu ed, Routine, Intra-op gentamicin 2022-0 2022- No PRN, Univer s injection 12-06 Starting ity o f 17:09: 20:20 on Lianne [place] 00 :05 12/06/22 at Medical 1109, Branch Until [place] 12/06/22 at 1420, ALEJANDRO, Intra-op dexamethaso 2022- No PRN, Unive rs ne 12-06 Starting ity of (DECADRON 17:09: 20:[address] [facility] PHOSPHATE) 00 :05 12/06/22 at [facility] ical injection 1109, Branch Until Lianne 12/06/22 at 1420, Routine, Intra-op ceFAZolin 2022- No PRN, Univers (ANCEF) 12-06 Starting ity of injection 17:09: 20:[address] [facility] 00 :05 12/06/22 at [facility] 1109, Branch Until Lianne 12/06/22 at 1420, ALEJANDRO, Intra-op balanced 2022- No PRN, Univers salt soln 12-06 Starting ity o f no.2 irrig. 17:09: 20:20 on [facility] as (BSS) 00 :05 12/06/22 at [facility] ophthalmic 1109, Branch solution Until Lianne 12/06/22 at 1420, Routine, Intra-op water for Yes PRN, Univers irrigation 12-06 Starting ity o f irrigation 17:06: on [facility] [place] solution 00 12/06/22 at [facility] al 1106, Branch Until Discontinu ed, Routine, Intra-op water for 2022- No PRN, Univers irrigation 12-06 Starting ity of irrigation 17:06: 20:20 on [facility] [place] solution 00 :05 12/06/22 at Medic al 1106, Branch Until [place]ian[place] 12/06/22 at 1420, Routine, Intra-op tetracaine 2022- No PRN, Univer s (PONTOCAINE 12-06 Starting ity of ) 0.5 % 17:04: 17:[address] [facility] ophthalmic 00 :14 12/06/22 at [facility] ical drops 1104, Branch Until [place]ianne 12/06/22 at 1131, Routine, Intra-op eye block 2022- No PRN, Univers syringe 11 12-06 Starting ity of mL 17:03: 17:31 on Lianne [place] 00 :14 12/06/22 at Medical 1103, Branch Until [place]ian[place] 12/06/22 at 1131, Intra-op cyclopent 2022-2022- No .5mL 0.5 mL, Univ ers 1%-tropic 12-06 Left Eye, ity of 1%-phenyl 15:30: 15:34 ONCE, 1 [place] 2.5%-ketor 00 :00 dose, On Medic al 0.5% [place] Branch (MYDRIATIC 12/06/22 at #5) 0930, ophthalmic Routine, solution DSU Pre-op syringe 0.5 mL lactated 2022-2022- No 1000mL at 42 Unive rs ringers IV 12-06 mL/hr, ity of infusion 15:30: 15:34 1,000 mL, [place] 1,000 mL 00 :00 IV Medical Infusion, Branch ONCE, 1 dose, On Lianne 12/06/22 at 0930, Routine, DSU Pre-op cyclopent 2022- No .5mL 0.5 mL, Univ ers 1%-tropic 12-06 Left Eye, ity of 1%-phenyl 15:30: 15:34 ONCE, 1 [place] 2.5%-ketor 00 :00 dose, On Medic al 0.5% [place] Branch (MYDRIATIC 12/06/22 at #5) 0930, ophthalmic Routine, solution DSU Pre-op syringe 0.5 mL lactated 2022- No 1000mL at 42 Unive rs ringers IV 12-06 mL/hr, ity of infusion 15:30: 15:34 1,000 mL, [place] 1,000 mL 00 :00 IV Medical Infusion, Branch ONCE, 1 dose, On [place]ian[place] 12/06/22 at 0930, Routine, DSU Pre-op losartan 2022-0 Yes 100mg Take 100 Univ ers 100 mg 1-26 mg by ity of tablet 12:15: mouth in [place] 00 the Medical morning. Branch losartan 2022-0 Yes 100mg Take 100 Univ ers 100 mg 1-26 mg by ity of tablet 12:15: mouth in [place] 00 the Medical morning. Branch losartan 2022-0 Yes 100mg Take 100 Univ ers 100 mg 1-23 mg by ity of tablet 11:40: mouth in [place] 13 the Medical morning. Branch lactated 2021-11 Yes 1000mL at 42 Univer s ringers IV 2-15 mL/hr, ity of infusion 15:45: 1,000 mL, [place] 1,000 mL 00 IV Medical Infusion, Branch CONTINUOUS , Starting on Lianne 10/25/22 at 0945, Until Discontinu ed, Routine, PACU lactated 2021-11- No 1000mL at 42 Unive rs ringers IV 2-15 12-15 mL/hr, ity of infusion 15:45: 18:16 1,000 mL, [place] 1,000 mL 00 :53 IV Medical Infusion, Branch CONTINUOUS , Starting on Lianne 10/25/22 at 0945, Until [place]ianne 10/25/22 at 1216, Routine, PACU ondansetron 2021-11 Yes 4mg 4 mg, Slow Univers (ZOFRAN 2-15 IV Push, ity of (PF)) 15:44: PRN, 1 [place] injection 4 55 dose, Medical mg Starting Branch on Lianne 10/25/22 at 0944, Until Discontinu ed, Routine, Nausea and Vomiting (N/V), PACU ondansetron 2021-11- No 4mg 4 mg, Slow Univers (ZOFRAN 2-15 12-15 IV Push, ity of (PF)) 15:44: 18:16 PRN, 1 [place] injection 4 55 :53 dose, Medical mg Starting Branch on Lianne 10/25/22 at 0944, Until Lianne 10/25/22 at 1216, Routine, Nausea and Vomiting (N/V), PACU gentamicin 2021-11- No PRN, Univer s injection 2-15 12-15 Starting ity o f 15:32: 15:46 on [place]ianne [place] 00 :01 10/25/22 Medical at 0932, Branch Until [facility] 10/25/22 at 0946, ALEJANDRO, Intra-op neomycin-po 2021-11- No PRN, Unive rs lymyxin-dex 2-15 12-15 Starting ity of amethasone 15:32: 15:46 on [facility] [place] (MAXITROL) 00 :01 10/25/22 Medic al 3.5 at 0932, Branch mg/g-10,000 Until [place]ian[place] unit/g-0.1 10/25/22 % at 0946, ophthalmic Routine, ointment Intra-op NaCl 0.9% 2021-11- No PRN, Univers (NS) 2-10-25 Starting ity of injection 15:32: 15:46 on Lianne [place] 00 :01 10/25/22 Medical at 0932, Branch Until [place]ianne 10/25/22 at 0946, Routine, Intra-op dexamethaso 2021-11- No PRN, Unive rs ne 12-26 Starting ity of (DECADRON 15:31: 15:46 on Lianne [place] PHOSPHATE) 00 :10/25/22 Medic al injection at 0931, Branch Until Lianne 10/25/22 at 0946, Routine, Intra-op ceFAZolin 2021-11- No PRN, Univers (ANCEF) 12-26 Starting ity of injection 15:31: 15:46 on Lianne [place] 00 :01 10/25/22 Medical at 0931, Branch Until Lianne 10/25/22 at 0946, ALEJANDRO, Intra-op EPINEPHrine 2021-11- No PRN, Unive rs (PF) 12-26 Starting ity of 1:1,000 (1 15:20: 15:46 on [place] mg/mL) 00 :01 10/25/22 Medical (ADRENALIN at 0920, Bran h (PF)) Until [place]ian[place] injection 10/25/22 at 0946, Routine, Intra-op chondroitin 2021-11- No PRN, Unive rs sulf-sod 12-26 Starting ity of hyaluronate 15:20: 15:46 on [place] (DUOVISC 00 :01 10/25/22 Medical VISCO at 0920, Branch ELASTIC) Until Lianne intraocular 10/25/22 injection at 0946, Routine, Intra-op balanced 2021-11- No PRN, Univers salt soln 12-26 Starting ity o f no.2 irrig. 15:20: 15:46 on [place] (BSS) 00 :01 10/25/22 Medical ophthalmic at 0920, Branc h solution Until [facility] 10/25/22 at 0946, Routine, Intra-op water for 2021-11- No PRN, Univers irrigation 2-15 12-15 Starting ity of irrigation 15:17: 15:46 on [facility] [place] solution 00 :01 10/25/22 Medical at 0917, Branch Until [facility] 10/25/22 at 0946, Routine, Intra-op tetracaine 2021-11- No PRN, Univer s (PONTOCAINE 2 12-15 Starting ity of ) 0.5 % 15:15: 15:[address] [facility] ophthalmic 00 :01 10/25/22 Medic al drops at 0915, Branch Until [facility] 10/25/22 at 0946, Routine, Intra-op eye block 2021-11- No PRN, Univers syringe 11 2- 12-15 Starting ity of mL 15:14: 15:[address] [facility] 00 :01 10/25/22 Medical at 0914, Branch Until [facility] 10/25/22 at 0946, Intra-op cyclopent 2021-11- No .5mL 0.5 mL, Univ ers 1%-tropic - 12-15 Right Eye, ity of 1%-phenyl 15:00: 13:53 ONCE, 1 [place] 2.5%-ketor 00 :00 dose, On Medic al 0.5% [facility] Branch (MYDRIATIC 10/25/22 #5) at 0900, ophthalmic Routine, solution DSU Pre-op syringe 0.5 mL cyclopent 2021-11- No .5mL 0.5 mL, Univ ers 1%-tropic 2- 12-15 Right Eye, ity of 1%-phenyl 15:00: 13:53 ONCE, 1 [place] 2.5%-ketor 00 :00 dose, On Medic al 0.5% [facility] Branch (MYDRIATIC 10/25/22 #5) at 0900, ophthalmic Routine, solution DSU Pre-op syringe 0.5 mL lactated 2021-11- No 1000mL at 42 Unive rs ringers IV 2-15 12-15 mL/hr, ity of infusion 13:45: 13:53 1,000 mL, [place] 1,000 mL 00 :00 IV Medical Infusion, Branch ONCE, 1 dose, On [place]ianne 10/25/22 at 0745, Routine, DSU Pre-op lactated 2021-11 1000mL at 42 Unive rs ringers IV 2-15 12-15 mL/hr, ity of infusion 13:45: 13:53 1,000 mL, [place] 1,000 mL 00 :00 IV Medical Infusion, Branch ONCE, 1 dose, On [place]ian[place] 10/25/22 at 0745, Routine, DSU Pre-op losartan 2021-11 Yes 100mg Take 100 Univ ers 100 mg 2-15 mg by ity of tablet 10:11: mouth in [place] [address] the Medical morning. Branch losartan 2021-11 Yes 100mg Take 100 Univ ers 100 mg 2-15 mg by ity of tablet 10:11: mouth in [place] [address] the Medical morning. Branch losartan 2021-11 Yes 100mg Take 100 Univ ers 100 mg 2-15 mg by ity of tablet 10:11: mouth in [place] [address] the Medical morning. Branch naproxen 2018-0 Yes [id number] 500mg Take 1 U nivers (NAPROSYN) 7-09 tablet by ity of 500 mg 00:00: mouth 2 [place] tablet 00 (two) Medical times Branch daily with meals. cyclobenzap 0 Yes [id number] 5mg Take 1 Univers rine 5 mg 7-09 tablet by ity o f tablet 00:00: mouth 3 [place] 00 (three) Medical times Branch daily as needed for Muscle Spasms. naproxen 2018-0 Yes [id number] 500mg Take 1 U nivers (NAPROSYN) 7-09 tablet by ity of 500 mg 00:00: mouth 2 [place] tablet 00 (two) Medical times Branch daily with meals. cyclobenzap 2018-0 Yes [id number] 5mg Take 1 Univers rine 5 mg 7-09 tablet by ity o f tablet 00:00: mouth 3 [place] 00 (three) Medical times Branch daily as needed for Muscle Spasms. naproxen 2018-0 Yes [id number] 500mg Take 1 U nivers (NAPROSYN) 7-09 tablet by ity of 500 mg 00:00: mouth 2 [place] tablet 00 (two) Medical times Branch daily with meals. cyclobenzap 2019-0 Yes [id number] 5mg Take 1 Univers rine 5 mg 7-09 tablet by ity o f tablet 00:00: mouth 3 [place] 00 (three) Medical times Branch daily as needed for Muscle Spasms. naproxen 2019-0 Yes [id number] 500mg Take 1 U nivers (NAPROSYN) 7-09 tablet by ity of 500 mg 00:00: mouth 2 [place] tablet 00 (two) Medical times Branch daily with meals. cyclobenzap 2018-0 Yes [id number] 5mg Take 1 Univers rine 5 mg 7-09 tablet by ity o f tablet 00:00: mouth 3 [place] 00 (three) Medical times Branch daily as needed for Muscle Spasms. naproxen 2018-0 Yes [id number] 500mg Take 1 U nivers (NAPROSYN) 7-09 tablet by ity of 500 mg 00:00: mouth 2 [place] tablet 00 (two) Medical times Branch daily with meals. cyclobenzap 2018-0 Yes [id number] 5mg Take 1 Univers rine 5 mg 7-09 tablet by ity o f tablet 00:00: mouth 3 [place] 00 (three) Medical times Branch daily as needed for Muscle Spasms. naproxen 2018-0 Yes [id number] 500mg Take 1 U nivers (NAPROSYN) 7-09 tablet by ity of 500 mg 00:00: mouth 2 [place] tablet 00 (two) Medical times Branch daily with meals. cyclobenzap 2018-0 Yes [id number] 5mg Take 1 Univers rine 5 mg 7-09 tablet by ity o f tablet 00:00: mouth 3 [place] 00 (three) Medical times Branch daily as needed for Muscle Spasms. naproxen 2018-0 Yes [id number] 500mg Take 1 U nivers (NAPROSYN) 7-09 tablet by ity of 500 mg 00:00: mouth 2 [place] tablet 00 (two) Medical times Branch daily with meals. cyclobenzap 2019-0 Yes [id number] 5mg Take 1 Univers rine 5 mg 7-09 tablet by ity o f tablet 00:00: mouth 3 [place] 00 (three) Medical times Branch daily as needed for Muscle Spasms. naproxen 2019-0 Yes [id number] 500mg Take 1 U nivers (NAPROSYN) 7-09 tablet by ity of 500 mg 00:00: mouth 2 [place] tablet 00 (two) Medical times Branch daily with meals. cyclobenzap 2019-0 Yes [id number] 5mg Take 1 Univers rine 5 mg 7-09 tablet by ity o f tablet 00:00: mouth 3 [place] 00 (three) Medical times Branch daily as needed for Muscle Spasms. naproxen 2018-0 Yes [id number] 500mg Take 1 U nivers (NAPROSYN) 7-09 tablet by ity of 500 mg 00:00: mouth 2 [place] tablet 00 (two) Medical times Branch daily with meals. cyclobenzap 2018-0 Yes [id number] 5mg Take 1 Univers rine 5 mg 7-09 tablet by ity o f tablet 00:00: mouth 3 [place] 00 (three) Medical times Branch daily as needed for Muscle Spasms. naproxen 2018-0 Yes [id number] 500mg Take 1 U nivers (NAPROSYN) 7-09 tablet by ity of 500 mg 00:00: mouth 2 [place] tablet 00 (two) Medical times Branch daily with meals. cyclobenzap 2018-0 Yes [id number] 5mg Take 1 Univers rine 5 mg 7-09 tablet by ity o f tablet 00:00: mouth 3 [place] 00 (three) Medical times Branch daily as needed for Muscle Spasms. naproxen 2018-0 Yes [id number] 500mg Take 1 U nivers (NAPROSYN) 7-09 tablet by ity of 500 mg 00:00: mouth 2 [place] tablet 00 (two) Medical times Branch daily with meals. cyclobenzap 2018-0 Yes [id number] 5mg Take 1 Univers rine 5 mg 7-09 tablet by ity o f tablet 00:00: mouth 3 [place] 00 (three) Medical times Branch daily as needed for Muscle Spasms. naproxen 2019-0 Yes [id number] 500mg Take 1 U nivers (NAPROSYN) 7-09 tablet by ity of 500 mg 00:00: mouth 2 [place] tablet 00 (two) Medical times Branch daily with meals. cyclobenzap 2019-0 Yes [id number] 5mg Take 1 Univers rine 5 mg 7-09 tablet by ity o f tablet 00:00: mouth 3 [place] 00 (three) Medical times Branch daily as needed for Muscle Spasms. naproxen 2019-0 Yes [id number] 500mg Take 1 U nivers (NAPROSYN) 7-09 tablet by ity of 500 mg 00:00: mouth 2 [place] tablet 00 (two) Medical times Branch daily with meals. cyclobenzap 2019-0 Yes [id number] 5mg Take 1 Univers rine 5 mg 7-09 tablet by ity o f tablet 00:00: mouth 3 [place] 00 (three) Medical times Branch daily as needed for Muscle Spasms. HYDROcodone 2019-0 Yes Univer s -acetaminop 5-08 ity of hen 5-325 00:00: [place] mg tablet 00 Medical Branch HYDROcodone 2019-0 Yes Univer s -acetaminop 5-08 ity of hen 5-325 00:00: [place] mg tablet 00 Medical Branch HYDROcodone 2019-0 Yes Univer s -acetaminop 5-08 ity of hen 5-325 00:00: [place] mg tablet 00 Medical Branch HYDROcodone 2019-0 Yes Univer s -acetaminop 5-08 ity of hen 5-325 00:00: [place] mg tablet 00 Medical Branch HYDROcodone 2019-0 Yes Univer s -acetaminop 5-08 ity of hen 5-325 00:00: [place] mg tablet 00 Medical Branch HYDROcodone 2019-0 Yes Univer s -acetaminop 5-08 ity of hen 5-325 00:00: [place] mg tablet 00 Medical Branch HYDROcodone 2019-0 Yes Univer s -acetaminop 5-08 ity of hen 5-325 00:00: [place] mg tablet 00 Medical Branch HYDROcodone 2019-0 Yes Univer s -acetaminop 5-08 ity of hen 5-325 00:00: [place] mg tablet 00 Medical Branch HYDROcodone 2019-0 Yes Univer s -acetaminop 5-08 ity of hen 5-325 00:00: [place] mg tablet 00 Medical Branch HYDROcodone 2019-0 Yes Univer s -acetaminop 5-08 ity of hen 5-325 00:00: [place] mg tablet 00 Medical Branch HYDROcodone 2019-0 Yes Univer s -acetaminop 5-08 ity of hen 5-325 00:00: [place] mg tablet 00 Medical Branch HYDROcodone 2019-0 Yes Univer s -acetaminop 5-08 ity of hen 5-325 00:00: [place] mg tablet 00 Medical Branch HYDROcodone 2019-0 Yes Univer s -acetaminop 5-08 ity of hen 5-325 00:00: [place] mg tablet 00 Medical Branch Vital Signs Vital Name Observation Time Observation Value Comments Source Systolic blood 2022-12-06 17:45:00 139 mm[Hg] Univer sity of pressure [facility] [place] [facility] Branch Diastolic blood 2022-12-06 17:45:00 61 mm[Hg] Unive rsity of pressure [facility] Heart rate 2022-12-06 17:45:00 65 /min [facility] [place] [facility] Respiratory rate 2022-12-06 17:45:00 15 /min [facility] ers[facility] [place] [facility] Oxygen saturation in 2022-12-06 17:45:00 99 /min University of Arterial blood by [place] Pulse oximetry Branch Body temperature 2022-12-06 17:28:00 36.33 Donna [facility] [place] [facility] Body height 2022-11-21 16:52:00 160 cm [facility] [place] [facility] [place] Body weight 2022-11-21 16:52:00 74.4 kg [facility] [place] [facility] BMI 2022-11-21 16:52:00 29.06 kg/m2 [facility] [place] [facility] Systolic blood 2022-12-06 15:30:00 133 mm[Hg] Univer sity of pressure [facility] [place] [facility] Branch Diastolic blood 2022-12-06 15:30:00 60 mm[Hg] Unive rsity of pressure [facility] [place] [facility] Branch Heart rate 2022-12-06 15:30:00 80 /min [facility] [place] [facility] [place] Body temperature 2022-12-06 15:30:00 36.94 Donna Univ ersity of [facility] [place] [facility] Branch Respiratory rate 2022-12-06 15:30:00 19 /min Univ [facility] [place] [facility] Oxygen saturation in 2022-12-06 15:30:00 97 /min University of Arterial blood by [employer] Pulse oximetry Branch Body height 2022-11-21 16:52:00 160 cm [facility] [place] [facility] Body weight 2022-11-21 16:52:00 74.4 kg [facility] [place] [facility] BMI 2022-11-21 16:52:00 29.06 kg/m2 [facility] [place] [facility] Systolic blood 2022-10-25 15:55:00 109 mm[Hg] Univer sity of pressure [place] [facility] Diastolic blood 2022-10-25 15:55:00 56 mm[Hg] Unive rsity of pressure [place] [facility] Heart rate 2022-10-25 15:55:00 77 /min [facility] [place] [facility] Respiratory rate 2022-10-25 15:55:00 15 /min Univ [facility] [place] [facility] Oxygen saturation in 2022-10-25 15:55:00 98 /min University of Arterial blood by [place] [facility] bela Pulse oximetry Branch Body temperature 2022-10-25 15:35:00 35.94 Donna [facility] [place] [facility] Body height 2022-10-22 19:00:00 160 cm [facility] [place] [facility] Body weight 2022-10-22 19:00:00 74.39 kg [facility] [place] [facility] BMI 2022-10-22 19:00:00 29.05 kg/m2 [facility] [place] [facility] Systolic blood 2022-10-25 13:46:00 117 mm[Hg] Univer sity of pressure [place] [facility] Diastolic blood 2022-10-25 13:46:00 57 mm[Hg] Unive rsity of pressure [place] [facility] Heart rate 2022-10-25 13:46:00 86 /min [facility] [place] [facility] Body temperature 2022-10-25 13:46:00 36.33 Donna [facility] [place] [facility] Respiratory rate 2022-10-25 13:46:00 23 /min [facility] [place] [facility] Oxygen saturation in 2022-10-25 13:46:00 99 /min University of Arterial blood by [place] [facility] bela Pulse oximetry Branch Body height 2022-10-22 19:00:00 160 cm [facility] [place] [facility] Body weight 2022-10-22 19:00:00 74.39 kg [facility] [place] [facility] BMI 2022-10-22 19:00:00 29.05 kg/m2 [facility] [place] [facility] Systolic blood 2019-06-10 18:10:00 126 mm[Hg] Univer sity of pressure [place] [facility] Diastolic blood 2019-06-10 18:10:00 75 mm[Hg] Unive rsity of pressure [place] [facility] Heart rate 2019-06-10 18:10:00 80 /min [facility] [place] [facility] Respiratory rate 2019-06-10 18:10:00 18 /min Univ ersity [facility] Body height 2019-06-10 18:10:00 160 cm [facility] Body weight 2019-06-10 18:10:00 76.204 kg [facility] BMI 2019-06-10 18:10:00 29.76 kg/m2 [facility] Systolic blood 2019-06-10 18:10:00 126 mm[Hg] Univer sity of pressure [facility] Diastolic blood 2019-06-10 18:10:00 75 mm[Hg] Unive rsity of [facility] Heart rate 2019-06-10 18:10:00 80 /min [facility]i [facility] Respiratory rate 2019-06-10 18:10:00 18 /min [facility] height 2019-06-10 18:10:00 160 cm [facility] Body weight 2019-06-10 18:10:00 76.204 kg [facility]i ty [facility] BMI 2019-06-10 18:10:00 29.76 kg/m2 [facility] Procedures Procedure Date / Time Performing Source Performed Clinician PHACOEMULSIFICATION OF 2022-12-06 Bruno [facility] CATARACT WITH INTRAOCULAR 16:51:00 Cole Martinez LENS IMPLANT ASSIGNMENT OF BENEFITS 2022-12-04 Doctor Unassigned, [facility] 16:32:14 [facility] PHACOEMULSIFICATION OF 2022-10-25 Bruno [facility] CATARACT WITH INTRAOCULAR 15:03:00 Cole Martinez LENS IMPLANT DAY SURGERY - ADC 2022-10-25 Doctor Unassigned, [facility] 06:01:00 [facility] ASSIGNMENT OF BENEFITS 2022-10-16 Doctor Unassigned, [facility] 17:07:13 [facility] XR FOOT <3 VW LEFT 2019-06-10 Emery Danielson [facility] 18:25:16 Medical Branch Encounters Start End Encounter Admission Attending Care Care Encounter Source Date/Time Date/Time Type Type Clinicians Facility Department ID 2022-12-06 2022-12-06 Outpatient Jael CARR [facility] OPH [id number] 975 [facility] 09:21:00 11:55:00 JUDITH chung [facility] 2022-12-06 2022-12-06 [facility] 1.2.840.114 [id number] Univers 09:21:00 11:55:00 Encounter Judith GRAY 350.1.13.10 ity of [place] [id number] [address] 2022-12-06 2022-12-06 [facility] 1.2.840.114 [id number] Univers 10:37:00 11:16:00 Judith GRAY 350.1.13.10 i [place] [id number] [address] 2022-12-04 2022-12-04 Orders Doctor ALAN 1.2.840.114 [id number] Univers 00:00:00 00:00:00 Only UnassignedLOLY 350.1.13.10 ity of [place] [facility] 4.2.7.2.686 [place] [id number] [address] 2022-10-25 2022-10-25 Outpatient R [facility] OPH [id number] Univers 07:39:00 10:05:00 JUDITH ity of [facility] 2022-10-25 2022-10-25 [facility] 1.2.840.114 [id number] Univers 07:39:00 10:05:00 Encounter Judith GRAY 350.1.13.10 [place] [id number] [address] 2022-10-25 2022-10-25 [facility] 1.2.840.114 [id number] Univers 08:52:00 09:29:00 Judith GRAY 350.1.13.10 [place] [id number] [address] 2022-10-25 2022-10-25 Orders Doctor ALAN 1.2.840.114 [id number] Univers 00:00:00 00:00:00 Only Unassigned, LOLY 350.1.13.10 [facility] [place] [facility] 4.2.7.2.686 [place] [id number] [address] 2022-10-16 2022-10-16 Student Development Coordinator [facility] 1.2.8 40.114 [id number] Univers 11:15:00 11:30:00 Visit Judith Carr 350.1.1 3.10 [place] [id number] Wa dical NAL [address] [place] [address] 2022-10-16 2022-10-16 Outpatient R [facility] [id number] [facility] 11:15:00 11:15:00 JUDITH tatum [facility] 2022-10-16 2022-10-16 Orders Doctor ALAN 1.2.840.114 [id number] Univers 00:00:00 00:00:00 Only Unassigned, LOLY 350.1.13.10 [facility] [place] [facility] 4.2.7.2.686 [place] [id number] [address] 2019-06-10 2019-06-10 [facility] 1.2.840.114 [id number] [facility] 13:25:15 23:59:00 Encounter Emery Beebe 350.1.13.10 ity of Surgical 4.2.7.2.686 [place] Specialti [id number] Wa dical es 809 [facility] 2019-06-10 2019-06-10 [facility] 1.2.840.114 [id number] 13:25:15 23:59:00 Encounter Emery Beebe 350.1.13.10 Surgical 4.2.7.2.686 Specialti [id number] es [address] [place] [address] 2019-06-10 2019-06-[address] [facility] 1.2.560.526 [id number] [facility] 12:45:41 14:39:18 Visit Emery Beebe 350.1.13.10 it y of Surgical 4.2.7.2.686 [place] Specialti [id number] Wa dical es 198 [facility] 2019-06-10 2019-06-10 Office Erum RIEREN 1.2.024.339 [id number] 12:45:41 14:39:18 Visit Emery Phelan [facility] 350.1.13.10 Surgical .2.7.2.686 Specialti [id number] [address] [place] Results Test Description Test Time Test Comments Results Result [facility] e Comments FALLOPIAN 2019-09-04 TUBE,STERILIZATION 13:24:00 --------RUN DATE: 09/07/19 [facility] PAGE 1 RUN TIME: 33 Specimen Inquiry RUN USER: INTERFACE --------PATIENT: BILL PEPE [facility] #: [id number] AGE/SX: 64/F ROOM: [facility] RE09/02/19[facility] DR: Alfredito Reid MD : 53 BED: A DIS: 09/03/19 STATUS: DIS Lisbeth TLOC: -------- SPEC #: [id number] RECD: 09/02/19 STATUS: TESHA GUZMAN #: [id number] CARMEL: 09/02/19- SUBM DR: Alfredito Reid MD ENTERED: 09/03/19 SP TYPE: GIBSON JULIAN DR: ORDERED: LEVEL II SURGIC CODES: I22315 - FALLOPIAN TUBE PROCEDURES: LEVEL II SURGIC [...] - adrenal rest, 0.2 cm CPT code(s): 80706 [facility]/ dt: 09/04/19 GROSS DESCRIPTION ANATOMIC SOURCE OF [...] The lesion appears confined to the cyst. Human Resources Communications Manager sections including the entire lesion are submitted as follows: A1 - short segment of fallopian tube and corresponding smaller ovary, A2 through A6 - long segment of fallopian tube and corresponding larger ovary. jm/wpd 09/03/19 @ 1030 CONTINUED ON NEXT PAGE --------RUN DATE: 09/07/19 [facility] PAGE 2 RUN TIME: 632 Specimen Inquiry RUN USER: INTERFACE --------SPEC #: [id number] PATIENT: BILL PEPE #[id number] (Continued) -------- Signed Juanis Joy MD 09/04/19 [...] = CA) 7.8 mg/dL 8.4-10.2 L HGB [id number] 04:54:00 Test Item Value Reference Range Interpretation Comments HEMOGLOBIN (test code = HGB) 10.9 g/dL 10.7-13.9 N HEMATOCRIT (test code = HCT) 34.4 % 32.1-42.1 N CHEMISTRY 7 [id number] 14:49:00 Test Item Value Reference Range Interpretation [...] = CA) 8.9 mg/dL 8.4-10.2 N URINALYSIS [id number] 14:39:00 Test Item Value Reference Range Interpretation [...] NONE SEEN URINE SAMPLE: CLEAN CATCHCBC W/AUTO [id number] 14:31:00 Test Item Value Reference Range Interpretation [...] code = PLTMR) - XR CHEST 2 [id number] 13:55:00 Patient Name: BILL PEPE Unit No: [id number] EXAMS: CPT CODE: [id number] XR CHEST 2 V 53448 CHEST RADIOGRAPHS - PA AND LATERAL: COMPARISON: None CLINICAL HISTORY: PRE OP The cardiopericardial silhouette is within normal limits. Moderate size retrocardiac hiatal hernia noted with air-fluid level. Lungsare clear. No vascular congestion or pneumothorax. IMPRESSION: No acute pulmonary abnormality. Moderate-sized hiatal hernia. at 1355 Reported and signed by: Chapin Salmon MD CC: Tri Coleman MD; Alfredito Reid MD Technologist: Quiana Watson, RT(MRI) Trnscrbd D/ (9701) [id number] Orig Print D/T: S: 08/11/2019 (2604) [facility] NAME: BILL PEPE Radiology Department PHYS: Toni Valera MD [address] : 1955 AGE: 64 SEX: F [place], [place] [address] LOC: GerardoDSI PHONE #: [phone] EXAM DATE: 08/11/2019 STATUS: PRE SDC FAX #: [phone] RAD NO: Page 1 Signed ReportXR FOOT <3 VW [id number] 18:49:47Fracture healing [facility] Notes Date/Time Note Provider Source 2019-09-09 23:22:00-00:00 [id number] [facility] [address], [place] [address] PATIENT NAME: BILL PEPE ADMIT DATE: 09/02/19 ACCOUNT NO: [id number] ROOM NO: 2610 AGE: 64 SEX: F ADMITTING PHYSICIAN: Alfredito Reid MD ATTENDING PHYSICIAN: Alfredito Reid MD OPERATION DATE: 09/02/2019 PREOPERATIVE DIAGNOSES: Symptomatic vagi nal vault prolapse along with anterior and posterior wall prolapse and posterior prolap se larger than the anterior perineal body defect and posterior enterocele. POSTOPERATIVE DIAGNOSES: Sym ptomatic vaginal vault prolapse along with anterior and posterior wall prolapse and posterior prolap se larger than the anterior perineal body defect and posterior enterocele. PROCEDURES PERFORMED: Please refer to Dr. Alfredito Reid's dictation for the bilateral salpingo-oophorectomy, lysis of adhesi ons, and sacrocolpopexy. My part as a surgeon is posteri or repair with enterocele repair and perineorrhaphy. Cystoscopy was also performed. SURGEON: Tri Coleman MD ANESTHESIA: General. The patient was under gener al anesthesia by the time I started my procedure, the ab dominal part was complete, and the posterior repair had to be done in order to repair all the defect s. ESTIMATED BLOOD LOSS: Overall 100, for my part i s about 50 mL. FLUIDS: 1400. URINARY OUTPUT: Overall 150 mL. SPECIMENS: None. COMPLICATIONS: None. DRAINS: Foster catheter. FINDINGS: Large genital hiatus 6 cm, pos terior enterocele, distal rectovaginal septum defect, and weak perineal body. The patient was given antibiotics approp riately prior to the procedure. 2 g of Ancef given. She was very stable for her entire procedure. For the posterior part, legs were placed in Marco stirrups and placed in dorsal lithotomy position for this. The patient was in slight Trendelenburg for the procedure. PATIENT NAME: BILL PEPE 1 The distal part of the sacra l colpopexy sutures were identified, which were the permanent sutures. About 5 cm from the perineal body, there was a significant defect in this part of the posterior wal l, which also included a weak perineal body, so plan was made to repair the posterior d efect and possibly attach the distal part of the posterior leaf of the sacroco lpopexy mesh to the perineal body after perineal body reconstruction. Lidocaine with epinephrine w as injected about 20 mL in the posterior wall and at the perineal body. A rhomboid incision was made on the vaginal epithelium and perineal squamous epithelium with the help of mo nopolar needle tip. The perineal skin as well as the vaginal epithelium all excised. Posterior compartment was entered. There was some rectovag inal fascia that was encountered while dissecting into the space abov e the level of the incision; however, there was a defect right above it, visualized posterior enterocele, and the graft was not attached d uring the abdominal repair to the intact fascia that was present in the distal most part of t he posterior wall, so once the vaginal epithelium was taken down all the way to the lev el of the distal graft, the posterior enterocele was ent ered. The posterior compartment was explored with a digital exam, and the distal part of the graft, which was roughly about 1.5 cm, was retrieved through this incision, then the pe ritoneum was reduced with the help of 2-0 Monocryl, and th e graft was left alone at this time. The first plan was to bring together the stretched rect ovaginal septum that was detached from the apex together in the midline by plicating th is from side to side with a continuous running 2-0 PDS suture. Once this was brought together and the posterior fascia was plicated all the wa y to the level of the perineal defect, this was then tied down, and then 2-0 PDS suture s were taken interrupted x3. With finger in the rectal canal, these perineal body sutures were placed to reconstruct the body, interrupted suture s were placed and were tied down. Once the perineal body was reconstructed satisfactori ly, then distal part of the graft was pulled down and attached with 2-0 Prol aniya sutures x3, one on either side to the level of the hym en and one in the center to the newly reconstructed perineal body. Once this was attached, then the vaginal epithelium was trimmed, and this was closed with the help of 2-0 Monocry l suture without using a pulldown technique. An incision was made in the horizontal fashion in the distal part of vaginal epithelium on the posterior wall covering the posterior wall. This horizontal incision was made in order to shorten the stretched vaginal epithelium in this area so that this could be attached to the incision that was made at the level of the perine al body. The vaginal epithelium inside of the perineum was pulled down, and with interr upted 2-0 Monocryl sutures, closure was performed with 5 sutures. Before the closure of the last suture, there was more bleeding than what was desired an d so FloSeal was used in this compartment, then the suture was placed. There w as good hemostasis, then the perineal skin was repaired w ith the help of 2-0 Monocryl in a continuous running fashion and the knot tied at the distal end on the perineum. There was optimal reduction of the posterior distal defect. The sa cral colpopexy posterior arm was satisfactorily reattached to the perineal ellen dy. The amount of tensioning here was slightly greater than desirable, howeve r, completely within normal limits. Nothing excessive that would predict wou nd breakdown. Rectal exam did not show any evidence of foreign body or sutures , or injury to the rectum. Cystoscopy was performed prior to the procedure here. Both ureteric orifices were well visualized and patent with str lupe jets of urine that were visualized with the Pyridium dye coming out. The bladder matias d no evidence of any foreign body or trauma. Procedure was completed, and the patient recovered from anesthesia. Please refer to the rest of the OP n ote from Dr. Reid. PATIENT NAME: BILL PEPE 1 Dictated By: Alfredito Reid MD WT: OP:FELIPA/UNRULY/KAVEH Conf#: [id number]/DID#: [id number] Authenticated by Alfredito Reid MD On 09/30/2019 07:02:37 PM Electronically Signed by Alfredito Reid MD on at 1903 PATIENT NAME: BILL PEPE 2019-09-03 06:17:00-00:00 [facility] Gynecology Progress Note REPORT#:[id number] REPORT STATUS: Signed DATE:09/03/19 TIME: 616 PATIENT: BILL PEPE UNIT #: [id number] ROOM/BED: [address] : [birth year] AGE: 64 SEX: F ATTEND: Alfredito Reid MD ADM AUTHOR: Alfredito Reid MD * ALL edits or amendments must be made on the [employer]/computer document * Subjective Chief Complaint: Patient seen and surgery reviewed. Patient reports: Yes: ambulating, flatus/bowel movement, pain con trolled, tolerating diet, voiding/urinating. No: complaints, abdominal di n, chills, fever, headache, heartburn, nausea, pelvic pain, vaginal bleeding , vomiting. Objective Physical Exam VS/I O: Last Documented: Result Date Time Pulse Ox 97 09/03 431 B/P 106/59 09/03 431 B/P Mean 74.6 09/03 431 O2 Delivery Room air 09/03 431 Temp 98.8 09/03 431 Pulse 62 09/03 431 Resp 18 09/03 431 O2 Flow Rate 6.492588 09/02 1930 24 hour I O ending at 0700: 09/03 0700 09/02 1900 Intake Total 1100.00 1400.00 Output Total 930 250 Balance 170.00 1150.00 Intake, IV 550.00 1400.00 Intake, Oral 550 Output, 100 Estimated Blood Loss Output, Urine 930 150 Patient 77 kg 77.3 kg Weight Weight Standing scale Standing scale Measurement Method Patient Weight Weight (lb): 169 Weight (oz): 12.1 Weight (kg): 77.000 General appearance: alert, awake, oriented Cardiovascular: normal heart sounds, regular rat e rhythm Respiratory: aerating well, clear to auscultatio n, symmetric expansion, no distress Abdomen: normal bowel sounds , non-tender, soft, no CVA tenderness, no distention , no guarding, no hernia, no mass/organomegaly, no rebound Extremities: full range of motion, moves all, no calf tenderness Diagnosis, Assessment Plan Free Text A P: s/p POP surgery, doing well 1. DC to home. Electronically Signed by Alfredito Reid MD on at 0618 [facility] #:[id number] END OF REPORT 2019-09-03 05:52:00-00:00 [id number] [facility] [address] [address] PATIENT NAME: BILL PEPE ADMIT DATE: 09/02/19 ACCOUNT NO: [id number] ROOM NO: 2610 AGE: 64 SEX: F ADMITTING PHYSICIAN: Alfredito Reid MD ATTENDING PHYSICIAN: Alfredito Reid MD 68 OPERATION DATE: 09/02/2019 PREOPERATIVE DIAGNOSES: 1. Post-hysterectomy vaginal vault prolapse (vag inal vault eversion). 2. Cystocele. 3. Rectocele. 4. Possible retained ovaries. POSTOPERATIVE DIAGNOSES: 1. Post-hysterectomy vaginal vault prolapse (vag inal vault eversion). 2. Cystocele. 3. Rectocele. 4. Possible retained ovaries. 5. Pelvic adhesive disease. 6. Retained ovaries. PROCEDURES PERFORMED DURING HOSPITALIZATION: 1. Laparoscopic lysis of adhesions-addit ional time of over 45 minutes required for adhesiolysis). 2. Laparoscopic removal of adnexal structures (b ilateral salpingo-oophorectomy). 3. Laparoscopic colpopexy (abdominal sacrocolpop exy using [employer] Upsylon Y-mesh)? 22 modifier (complexity of surgery increased due to extensive pelvic adhesive disease requiring over 45 minute s of lysis of adhesions at site of laparoscopic colpopexy) SURGEON: Alfredito Reid MD MANAGER STARS: Tri Coleman MD SECOND MANAGER STARS: Teresa Bowen NP ANESTHESIA: General anesthesia. ESTIMATED BLOOD LOSS: Less than 100 mL; 100 mL t otal for all procedures combined. COMPLICATIONS: None. PROCEDURE IN DETAIL: The patient was met by both myself and Dr. Coleman and plans for procedure were rev iewed. Dr. Coleman also discussed with the patient that if ovaries were identified in the abdomen t hat they would be removed in PATIENT NAME: BILL PEPE which the patient agreed. The patient's and her 's questions were answered to their stated satisfaction. She was t oscar to the operating room where she was given general anesthesia. She was placed in a low lithotomy position with Marco stirrups and prepped and becky ped in a sterile fashion. Time-out was performed. A ca theter was placed inside her bladder draining clear urine. Examination under anesthesia demo nstrated a large gaping genital hiatus with vaginal vault eversion. An infraumbilical s kin incision was made with a scalpel after the area was infiltrated with lido mana. A 5-mm [place] port with scope in place was passed through t he incision into the abdominal cavity. The abdomen was insufflated with CO2 gas. Bowel and vascular structures were examined and found to be intact. Additional port s were placed under direct visualization included two l ateral 8-mm ports, a second 5-mm right lateral port, and a suprapubic 5-mm port. The left lat eral port and suprapubic port were not placed until the omental adhesions were taken do wn off the anterior abdominal wall. Examination under anesthesia demonstrated liver to be normal to appearance. Gallbladder was not readily identified. Appendix could not be identified. The omentum was adherent to the anterior abdominal w all superior to the umbilicus with those adhesions continu ing along the mid portion of the anterior abdominal wall to the far left side of the pelvis. The ome ntum was adherent to the dome of the bladder. Further dissection after lysis o f dome adhesions demonstrated the rectosigmoid bowel to be adherent to the left sidewall beginning superior to the pelvic inlet, and progressed to include the left side of the pelvic sidewall, left tube, left ovary, left ovarian fo ssa, bladder, vagina, posterior cul-de- sac. Some filmy adhesi ons of the bowel to the right sidewall were encountered. Right tube and ovary were pres ent, relatively free of adhesions. The left tube and ovary were adherent to the left sidewall. Laparoscopic lysis of adhesions was performed. U tilizing the right lateral ports, the Thunderbeat devic e was used to take down the adhesions of the omentum to the anterior abdominal wall, neighboring left sidewall, and bladder. Adhesions were principally d ense adhesions with some occasional filmy adhesions. This required slow meticulous dissection to saf derrick take down the adhesion. Bleeding was absent during t he procedure. After the omentum was freed, the left lateral port and the suprapubic ports were place d. Slow meticulous dissection was further required to mobilize the bowel from the left sidewall, bladder, vagina, posterior cul-de-sac, right sidewall, an d left ovary. Adhesions were combination of both dense and filmy adhesions. D issection was performed principally with cold EndoShears with bl eeding occasionally encountered, which was controlled with bipolar cautery using Maryla nd tips. Throughout the lysis of adhesions, caution was made to ensure the loc ation of the bowel, vascular structures, and neighbouring ureter. All of thes e structures were inspected after completion of lysis of adhesions and founded to be intact. Total time for adhesiolysis to expose the surgical sites with p lanned colpopexy was over 45 minutes. The superior hypogastric ner ve block was performed. A 20 mL of 0.2% ropivacaine was injected into the retroperitoneal space just inferior to the aortic bifurcation at the region of the superior hypoga stric plexus. The laparoscopic removal of the adnexal structur es was performed. The left ovary was found to be adherent to the left sidew all. An incision was made in the peritoneum between the ovary and the identif ied tract of the left ureter. This mobilized the inferior margin of the ovary. The peritoneum was mobilized PATIENT NAME: BILL PEPE at the side of the obliterated round ligament. T he lateral adhesion to the left sidewall. Once the adhesions were addressed and the ovary was remote/ away from the vascular structures and ureter, th e infundibulopelvic ligament was cauterized and cut with Thunderbeat device. The right ovary was relatively mobile. T he infundibulopelvic ligament was isolated away from sidewall structures. The IPL was cauterized and cut. The remaining tissue securin g the ovary to the right sidewall was cauterized and cut. Suprapubic 5-mm port was briefly re placed with a 10-mm port through which a bag was passed into the abdominal cavity. The ovaries were placed in the bag and removed from the abdomen. The 5 mm port was replaced into the incision site. Laparoscopic colpopexy was performed. A vaginal elevator was placed in the vaginal vault and directed i n a cephalad fashion. The bladder was reflected off the upper half of the anterior visceral connecti ve tissue. The rectovaginal septum was entered exposing the posterior viscer al connective tissue. Peritoneum over the sacral p romontory was incised. Blunt dissection was carried down to the anterior longitu dinal ligament positively identifying the structure. The peritoneal incision was continued in a caudad fashion lateral to the bowel and medial to the right ureter. Upon reaching th e hollow of the sacrum, the peritoneal incision was communicated with the pe ritoneum reflected off the posterior wall of the vagina. A [employer] c Upsylon Y-mesh was cut to length and secured to the posterior wall of vagina with distal lateral sutures of 2-0 Prolene and a midline V-Loc suture of 2-0 PDS. A second row of interrupted V-Loc sutures were placed at the junction between the proximal and middle third of the posterior visceral c onnective tissue. The other end of the mesh was secured to the anterior longitudinal li gament with a 5-mm ProTack device. The anterior leaf of the mesh was secure d to the anterior visceral connective tissue with dista l lateral sutures of 2-0 Prolene and a midline V-Loc suture of 2-0 PDS. Inspectio n of the mesh revealed no evidence of undue tension of the mesh against the apex anterior or posteri or compartments. As a precaution, two additional i nterrupted V-Loc sutures of 2-0 PDS were secured to the proximal third of the lateral margins of the anterior visceral connective tissue mesh. All surgical sites were confirmed t o be hemostatic. Peritoneum was sewn over the mesh with running V-Loc suture s of 2-0 PDS. Examination under anesthesia demonstrated the ellen wel, vascular structures, and ureters to be intact without evidence of injury. Instruments were removed from the abdomen and gas was evacuated after ropivacaine blocks were applied to all incision sites. Incisions were closed wi th 4-0 Vicryl and covered with benzoin and Steri-Strips. Examination under anesthesia demonstrated the pe rsistence of a significant rectocele and distal enterocele. Otherwi se, the patient demonstrated excellent support of the apex and anterior compartments. A cystoscopy and posterior colporrhaphy was performed as dictated by Dr. Alyssa garsia. Please refer to her dictation for those procedures. Dictated By: Alfredito Reid MD WT: OP:F.DERIK/UNRULY/KAVEH Conf#: [id number]/DID#: [id number] PATIENT NAME: BILL PEPE Authenticated and Edited by Alfredito Reid MD On 09/03/19 10:10:03 AM Electronically Signed by Alfredito Reid MD on at 1016 PATIENT NAME: BILL PEPE 2019-09-02 18:29:00-00:00 [facility] Brief Op Note REPORT#:[id number] REPORT STATUS: Signed DATE:09/02/19 TIME: 1828 PATIENT: BILL PEPE UNIT #: [id number] ROOM/BED: : 53 AGE: 64 SEX: F ATTEND: Alfredito Reid MD ADM AUTHOR: TERESA BOWEN NP * ALL edits or amendments must be made on the [employer]/computer document * Op/Inv Proc Note - Brief Pre-procedure diagnosis: Prolapse of vaginal vault after hysterectomy Post-procedure diagnosis: same as pre procedure dx Procedures performed: 1. L/S DOUGLAS 2. L/S ASC 3. PC Primary Surgeon: Serg Coleman Appliance Assembler(s): Adelfo Bowen Findings: n/a Complications: none Estimated blood loss in ml's: 100cc Specimens removed/altered: none Electronically Signed by TERESA BOWEN NP on 9 at 1830 RPT #:[id number] END OF REPORT 2019-09-02 18:29:00-00:00 [facility] Brief Op Note REPORT#:[id number] REPORT STATUS: Signed DATE:09/02/19 TIME: 1828 PATIENT: BILL PEPE UNIT #: [id number] ROOM/BED: : 53 AGE: 64 SEX: F ATTEND: Alfredito Reid MD ADM AUTHOR: TERESA BOWEN NP * ALL edits or amendments must be made on the [employer]/computer document * See Addendum Op/Inv Proc Note - Brief Pre-procedure diagnosis: Prolapse of vaginal vault after hysterectomy Post-procedure diagnosis: same as pre procedure dx Procedures performed: 1. L/S DOUGLAS 2. L/S ASC 3. PC Primary Surgeon: Serg Coleman Appliance Assembler(s): Adelfo Bowen Findings: n/a Complications: none Estimated blood loss in ml's: 100cc Specimens removed/altered: none Electronically Signed by TERESA BOWEN NP on 9 at 1830 Addendum 1: 09/02/191836 by TERESA BOWEN NP Procedure performed also included an enterocele repair and cystoscopy Electronically Signed by TERESA BOWEN NP on 9 at 1837 RPT #:[id number] END OF REPORT 2019-08-11 13:43:00-00:00 [id number] [facility] [address] [address] PATIENT NAME: BILL PEPE ADMIT DATE: ACCOUNT NO: [id number] ROOM NO: AGE: 64 SEX: F ADMITTING PHYSICIAN: ATTENDING PHYSICIAN: Alfredito Reid MD Order: [id number] Test Reason : PRE- OP Test Date/Time Stamp: SatAug 11 2019 13:43:41 Blood Pressure : / mmHG Vent. Rate : 054 BPM Atrial Rate : 054 BPM P-R Int : 150 ms QRS Dur : 096 ms QT Int : 420 ms P-R-T Axes : 038 -08 038 degree s QTc Int : 398 ms Sinus bradycardia Otherwise normal ECG No previous ECGs available Confirmed by SARAI NGO MD ([id number]) on 08/13/20 7:43:04 AM Referred By: Alfredito Reid Confirmed by:SARAI GODINEZ MD Electronically Signed by Sarai Ngo MD on 1 at 0743 PATIENT NAME: BILL PEPE
[2023-04-20 05:56] LABS: Absolute Lymphocytes (CBC) 1.5 K/uL (0.7-4.9); Hematocrit 38.1 % (36.0-45.0); Lymphocytes % 33.4 % (15.3-44.8); MCV 84.1 fL (80-100); MPV 7.1 fL (7.6-11.3); RBC Red Blood Cell Count 4.53 M/uL (3.86-4.86)
[2023-04-20 05:59] LABS: Protime INR 0.88
[2023-04-20 06:09] LABS: Potassium 3.8 mEq/L (3.5-5.1); Troponin High Sensitivity 5.3 pg/mL (<58.9)
[2023-04-20] MEDS ORDERED: MECLIZINE HCL 12.5 MG TAB ONE ×2 (06:32→06:35)
[2023-04-20] MEDS ORDERED: NA CHLORIDE 0.9% 500 ML ONE (06:32)
--- NOTE | 2023-04-20 07:08 | RAD REPORT ---
EXAM DESCRIPTION: CT - Head Brain Wo Cont - 04/20/2023 6:51 am CLINICAL HISTORY: DIZZINESS COMPARISON: <Comparisons> TECHNIQUE: All CT scans are performed using dose optimization technique as appropriate and may inclu de automated exposure control or mA/KV adjustment according to patient size. FINDINGS: No intracranial hemorrhage, hydrocephalus or extra-axial fluid collection.No areas of brai n edema or evidence of midline shift. The paranasal sinuses and mastoids are clear. The calvarium is intact. IMPRESSION: No acute intracranial abnormality.
--- NOTE | 2023-04-20 07:15 | RAD REPORT ---
EXAM DESCRIPTION: CT - Neck Angio - 04/20/2023 6:51 am CLINICAL HISTORY: dizzines COMPARISON: No comparisons TECHNIQUE: CT angiography of the neck vessels was performed with maximum intensity reformatted image s. 3D maximum intensity pixel (MIP) reconstructions were created CAROTID STENOSIS REFERENCE USING NASCET CRITERIA: Mild - <50% stenosis. Moderate - 50-69% stenosis. Severe - 70-94% stenosis. Near occlusion - 95-99% stenosis. Occluded - 100% stenosis. All CT scans are performed using dose optimization technique as appropriate and may include automated exposure control or mA/KV adjustment according to patient size. FINDINGS: A left aortic arch is identified with normal three vessel configuration of the great vesse ls. No significant flow abnormality is seen of the common carotid bilaterally. No significant stenosis is identified involving the cervical segments of both internal carotid arteri es. Normal flow is seen within both vertebral arteries. IMPRESSION: No significant flow abnormality of the neck vessels is identified.
--- NOTE | 2023-04-20 07:16 | RAD REPORT ---
EXAM DESCRIPTION: CT - Head angio - 04/20/2023 6:51 am CLINICAL HISTORY: dizzines COMPARISON: No comparisons TECHNIQUE: CT angiography of the head was performed with maximum intensity reformatted images. All CT scans are performed using dose optimization technique as appropriate and may include automated exposure control or mA/KV adjustment according to patient size. FINDINGS: Anterior circulation: No aneurysm or large vessel occlusion. No hemodynamically significant stenosis. No arteriovenous malf ormation identified.Absent right A1 segment. Posterior circulation: No aneurysm or large vessel occlusion. No hemodynamically significant stenosis. No arteriovenous malf ormation identified. IMPRESSION: No significant flow abnormality is detected.
--- NOTE | 2023-04-20 07:16 | RAD REPORT ---
EXAM DESCRIPTION: RAD - Chest Single View - 04/20/2023 5:55 am CLINICAL HISTORY: CONGESTION COMPARISON: Chest Pa And Lat (2 Views) dated 03/13/2022; Chest Single View dated 09/17/2021; Chest Pa A nd Lat (2 Views) dated 08/15/2021; Chest Pa And Lat (2 Views) dated 11/24/2020 FINDINGS: Lines: None. Lungs: No evidence of edema or pneumonia. Pleural: No significant pleural effusions or pneumothorax. Cardiac: The heart size is within normal limits. Mediastinum: Within normal limits. Bones: No acute fractures. Other: None IMPRESSION: No acute cardiopulmonary disease.
--- NOTE | 2023-04-20 09:06 | EDPHYS ---
Physician Documentation [facility] Name: Gisele Pepe Age: 67 yrs Sex: Female : 1955 Arrival Date: 04/20/2023 Time: 05:07 Bed 13 Private MD: ED Physician Luca Go HPI: 04/20 07:03 This 67 yrs old Female presents to ER via Ambulatory with complaints of bs3 Syncope. 07:07 67-year-old with history of hypertension presents with feeling off she woke up in the bs3 middle of the night and felt like her bed was falling her symptoms are worse with head movement but she feels lightheaded at rest she denies any associated slurred speech and numbness tingling or weakness in her extremities or anything else bothering her this is never happened before she denies any recent illnesses denies any chest pain her symptoms are moderate intensity she got very scared and therefore came in. Historical: - Allergies: 05:23 tramadol (blistering); pf1 - Home Meds: 05:23 losartan oral [Active]; pf1 - PMHx: 05:23 Hypertensive disorder; pf1 - PSHx: 05:23 Cholecystectomy; Appendectomy; umbilical hernia; back surgery; section; pf1 - Immunization history:: Adult Immunizations up to date, Client reports receiving the 2nd dose of the Covid vaccine, Last tetanus immunization: < 5 years ago Flu vaccine is up to date. - Social history:: Smoking status: Patient denies any tobacco usage or history of. Patient/guardian denies using alcohol, street drugs. ROS: 07:21 Constitutional: Negative for fever, chills bs3 07:21 All other systems are negative. Exam: 07:21 Constitutional: This is a well developed, well nourished patient who is awake, alert, bs3 and in no acute distress. Head/Face: Normocephalic, atraumatic. Eyes: Pupils equal round and reactive to light, extra-ocular motions intact. Lids and lashes normal. Fatigable nystagmus ENT: mmm, no posterior phyarngeal erythema Neck: Trachea midline, no thyromegaly, no neck stiffness Chest/axilla: Normal chest wall appearance and motion. Nontender with no deformity. No lesions are appreciated. Cardiovascular: Regular rate and rhythm with a normal S1 and S2. symmetric pulses in upper extremities Respiratory: Lungs have equal breath sounds bilaterally, clear to auscultation, no respiratory distress Abdomen/GI: Soft, non-tender, no rebound or guarding Skin: Warm, dry with normal turgor. Normal color with no rashes, no lesions, and no evidence of cellulitis. MS/ Extremity: Pulses equal, no cyanosis. Neurovascular intact. Full, normal range of motion. Neuro: Patient with a slow gait and feels unsteady during ambulation however not falling or leaning to one side 07:21 Normal sinus rhythm at [address] elevations or depressions QTc is 464 as interpreted by Vital Signs: 05:19 Weight 77.11 kg; Height 5 ft. 3 in. ; Pain 0/10; pf1 05:30 BP 165 / 65; Pulse 71; Resp 18; Temp 97.5; Pulse Ox 100% on R/A; Pain 0/10; pf1 06:44 BP 152 / 62; Pulse 65; Resp 19; Pulse Ox 99% ; kd3 07:15 BP 161 / 68; Pulse 62; Resp 14; Pulse Ox 97% ; bp 05:19 Body Mass Index 30.11 (77.11 kg, 160.02 cm) pf1 05:19 Pain Scale: Adult pf1 05:30 Pain Scale: Adult pf1 NIH Stroke Scale Scores: 07:21 NIHSS Score: 0 bs3 MDM: 05:37 Patient medically screened. bs3 07:21 Differential Diagnosis: cardiac arrhythmia, cerebrovascular accident, transient bs3 ischemic attack, vasovagal episode. Data reviewed: vital signs, nurses notes. 07:21 ED course: Patient with vertigo it is worse with head movements but she still has bs3 dizziness at rest will evaluate for CVA her NIH is 0 her last known normal was when she went to bed at around 9 PM she is not a candidate for thrombolytics I do not think she has an LVO will reassess On reassessment she is feeling slightly better her gait is improved but she still walking slowly she is pending CTA. 09:04 Counseling: I had a detailed discussion with the patient and/or guardian regarding: the rn historical points, exam findings, and any diagnostic results supporting the discharge/admit diagnosis, lab results, radiology results, the need for outpatient follow up, to return to the emergency department if symptoms worsen or persist or if there are any questions or concerns that arise at home. Response to treatment: the patient's symptoms have markedly improved after treatment, ambulating without assistance, feels much better. ED course: Pt does not want to be admitted for further w/u, states feels much better, ambulatory without assistance to bathroom. CT head/angio neg for acute findings, offered admission and wants to go home with medication. Plans to call pcp and will f/u with neuro. Return precautions given and understood. . 04/20 05:37 Order name: Basic Metabolic Panel; Complete Time: 06:11 bs3 04/20 05:37 Order name: CBC with Diff; Complete Time: 06:11 bs3 04/20 05:37 Order name: High Sensitivity Troponin; Complete Time: 06:11 bs3 04/20 05:37 Order name: Protime (+inr); Complete Time: 06:11 bs3 04/20 05:37 Order name: Ptt, Activated; Complete Time: 06:11 bs3 04/20 06:19 Order name: Glucose, Ancillary Testing; Complete Time: 06:20 EDMS 04/20 05:37 Order name: Stroke CXR 1 View; Complete Time: 07:18 bs3 04/20 05:37 Order name: CT Head Brain wo Cont; Complete Time: 07:18 bs3 04/20 05:37 Order name: CT Head Angio; Complete Time: 07:18 bs3 04/20 05:37 Order name: CT Neck Angio; Complete Time: 07:18 bs3 04/20 05:37 Order name: EKG; Complete Time: 05:38 bs3 04/20 05:37 Order name: Accucheck; Complete Time: 06:44 bs3 04/20 05:37 Order name: Cardiac monitoring; Complete Time: 06:42 bs3 04/20 05:37 Order name: EKG - Nurse/Tech; Complete Time: 05:57 bs3 04/20 05:37 Order name: IV Saline Lock; Complete Time: 05:58 bs3 04/20 05:37 Order name: Labs collected and sent; Complete Time: 05:57 bs3 04/20 05:37 Order name: NPO; Complete Time: 05:58 bs3 04/20 05:37 Order name: O2 Per Protocol; Complete Time: 06:42 bs3 04/20 05:37 Order name: O2 Sat Monitoring; Complete Time: 06:42 bs3 04/20 05:37 Order name: Stroke Swallow Screen; Complete Time: 06:42 bs3 Administered Medications: 06:42 Drug: Meclizine PO 25 mg Route: PO; kd3 06:42 Drug: NS 0.9% IV 500 ml Route: IV; Rate: bolus; Site: left antecubital; kd3 Point of Care Testing: Blood Glucose: 06:44 Blood Glucose: 124 mg/dL; kd3 Ranges: Critical Glucose Levels:Adult <50 mg/dl or >400 mg/dl <40 mg/dl or >180 mg/dl Disposition Summary: 04/20/23 09:06 Discharge Ordered Location: Home rn Problem: new rn Symptoms: have improved rn Condition: Stable rn Diagnosis - Dizziness and giddiness rn - Vertigo rn Followup: rn - With: Chan Rogers MD - When: 5 - 6 days - Reason: Recheck today's complaints, Re-evaluation by your physician Discharge Instructions: - Discharge Summary Sheet rn - Dizziness rn - Vertigo rn Forms: - Medication Reconciliation Form rn - Thank You Letter rn - 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 Dysarthria (speech clarity - read or repeat words) - 0(Normal) 11. Extinction and Inattention (visual/tactile/auditory/spatial/personal) - 0(No abnormality) 1a. Level of Consciousness (LOC) - 0(Alert) 1b. Level of Consciousness (LOC) (Month \T\ Age) - 0(Both) 1c. LOC Commands (Open \T\ Closes Eyes/Driver Messenger) - 0(Both) 2. Best Gaze (Lateral Gaze Paresis) - 0(Normal) 3. Visual Field Loss - 0(No visual loss) 4. Facial Palsy - 0(Normal) 5a. Left Arm: Motor (10-second hold) - 0(No drift) 5b. Right Arm: Motor (10-second hold) - 0(No drift) 6a. Left Leg: Motor (5-second hold - always test supine) - 0(No drift) 6b. Right Leg: Motor (5-second hold - always test supine) - 0(No drift) 7. Limb Ataxia (finger/nose \T\ heel/carvajal - test with eyes open) - 0(Absent) 8. Sensory Loss (pinprick arms/legs/face) - 0(Normal) 9. Best Language: Aphasia (description/naming/reading) - 0(No aphasia) Initials: bs3 Signatures: Dispatcher [employer] Luca Zhou MD MD rn Doucette, Kyli RN RN kd3 Uche Anderson MD MD bs3 Sandi Dolan, RN RN pf1
--- NOTE | 2023-04-20 09:06 | ER ---
Nurse's Notes [facility] Name: Gisele Pepe Age: 67 yrs Sex: Female : 1955 Arrival Date: 04/20/2023 Time: 05:07 Bed 13 Private MD: Diagnosis: Dizziness and giddiness;Vertigo Presentation: 04/20 05:19 Chief complaint: Patient states: dizziness,onset 0300, woke up and felt like the bed pf1 was falling. Patient denies any fall or pain. Coronavirus screen: Vaccine status: Patient reports receiving the 2nd dose of the covid vaccine. AC Immune SA Client denies travel out of the [place] in the last 14 days. At this time, the client does not indicate any symptoms associated with coronavirus-19. Ebola Screen: Patient negative for fever greater than or equal to 101.5 degrees Fahrenheit, and additional compatible Ebola Virus Disease symptoms. Initial Sepsis Screen:. 05:19 Method Of Arrival: Ambulatory pf1 05:19 Acuity: STEPHEN 3 pf1 06:43 Initial Sepsis Screen: Does the patient meet any 2 criteria? No. Patient's initial kd3 sepsis screen is negative. Does the patient have a suspected source of infection? No. Patient's initial sepsis screen is negative. Risk Assessment: Do you want to hurt yourself or someone else? Patient reports no desire to harm self or others. Onset of symptoms was April 20, 2023. Triage Assessment: 06:43 General: Appears uncomfortable. Neuro: Reports dizziness. kd3 Historical: - Allergies: 05:23 tramadol (blistering); pf1 - Home Meds: 05:23 losartan oral [Active]; pf1 - PMHx: 05:23 Hypertensive disorder; pf1 - PSHx: 05:23 Cholecystectomy; Appendectomy; umbilical hernia; back surgery; section; pf1 - Immunization history:: Adult Immunizations up to date, Client reports receiving the 2nd dose of the Covid vaccine, Last tetanus immunization: < 5 years ago Flu vaccine is up to date. - Social history:: Smoking status: Patient denies any tobacco usage or history of. Patient/guardian denies using alcohol, street drugs. Screenin:43 [facility] ED Fall Risk Assessment (Adult) History of falling in the last 3 months, kd3 including since admission No falls in past 3 months (0 pts) Confusion or Disorientation No (0 pts) Intoxicated or Sedated No (0 pts) Impaired Gait No (0 pts) Mobility Assist Device Used No (0 pt) Altered Elimination No (0 pt) Score/Fall Risk Level 0 - 2 = Low Risk Maintained a safe environment. Abuse screen: Denies threats or abuse. Denies injuries from another. Nutritional screening: No deficits noted. Tuberculosis screening: No symptoms or risk factors identified. Assessment: 06:42 General: Appears uncomfortable, Behavior is calm, cooperative. Pain: Denies pain. kd3 Neuro: Level of Consciousness is awake, alert, obeys commands, Oriented to person, place, time, situation. Cardiovascular: Rhythm is sinus rhythm. 07:00 Reassessment: REPORT FROM SHOAIB GONSALES. 67YO WF P/W SYNCOPE. DISPO PENDING. bp 07:32 Reassessment: PT AMBULATING WITH STEADY GAIT. bp Vital Signs: 05:19 Weight 77.11 kg; Height 5 ft. 3 in. ; Pain 0/10; pf1 05:30 BP 165 / 65; Pulse 71; Resp 18; Temp 97.5; Pulse Ox 100% on R/A; Pain 0/10; pf1 06:44 BP 152 / 62; Pulse 65; Resp 19; Pulse Ox 99% ; kd3 07:15 BP 161 / 68; Pulse 62; Resp 14; Pulse Ox 97% ; bp 05:19 Body Mass Index 30.11 (77.11 kg, 160.02 cm) pf1 05:19 Pain Scale: Adult pf1 05:30 Pain Scale: Adult pf1 NIH Stroke Scale Scores: 07:21 NIHSS Score: 0 bs3 ED Course: 05:09 Patient arrived in ED. kj1 05:23 Triage completed. pf1 05:36 Uche Anderson MD is Attending Physician. bs3 05:44 Inserted saline lock: 20 gauge in left antecubital area, using aseptic technique. Blood oe collected. 05:57 Stroke CXR 1 View In Process Unspecified. EDMS 05:58 Basic Metabolic Panel Sent. pf1 05:58 CBC with Diff Sent. pf1 05:58 High Sensitivity Troponin Sent. pf1 05:58 Protime (+inr) Sent. pf1 05:58 Ptt, Activated Sent. pf1 06:20 Mary Lombardi, DRU is Primary Nurse. kd3 06:43 No provider procedures requiring assistance completed. kd3 06:43 Arm band placed on right wrist. kd3 06:43 Patient has correct armband on for positive identification. kd3 06:53 CT Head Brain wo Cont In Process Unspecified. EDMS 06:53 CT Head Angio In Process Unspecified. EDMS 06:53 CT Neck Angio In Process Unspecified. EDMS 07:01 Primary Nurse role handed off by Mary Lombardi RN bp 07:01 Luis Manuel Machuca, DRU is Primary Nurse. bp 07:17 Attending Physician role handed off by Uche Anderson MD rn 07:17 Luca Go MD is Attending Physician. rn 09:05 Chan Rogers MD is Referral Physician. rn Administered Medications: 06:42 Drug: Meclizine PO 25 mg Route: PO; kd3 06:42 Drug: NS 0.9% IV 500 ml Route: IV; Rate: bolus; Site: left antecubital; kd3 Medication: 06:44 VIS not applicable for this client. kd3 Point of Care Testing: Blood Glucose: 06:44 Blood Glucose: 124 mg/dL; kd3 Ranges: Outcome: 09:06 Discharge ordered by MD. rn 09:34 Patient left the ED. eh3 NIH Stroke Scale - NIH Stroke Score Date: 04/20/2023 Time: 07:21 Total Score = 0 10. Dysarthria (speech clarity - read or repeat words) - 0(Normal) 11. Extinction and Inattention (visual/tactile/auditory/spatial/personal) - 0(No abnormality) 1a. Level of Consciousness (LOC) - 0(Alert) 1b. Level of Consciousness (LOC) (Month \T\ Age) - 0(Both) 1c. LOC Commands (Open \T\ Closes Eyes/Color Finisher) - 0(Both) 2. Best Gaze (Lateral Gaze Paresis) - 0(Normal) 3. Visual Field Loss - 0(No visual loss) 4. Facial Palsy - 0(Normal) 5a. Left Arm: Motor (10-second hold) - 0(No drift) 5b. Right Arm: Motor (10-second hold) - 0(No drift) 6a. Left Leg: Motor (5-second hold - always test supine) - 0(No drift) 6b. Right Leg: Motor (5-second hold - always test supine) - 0(No drift) 7. Limb Ataxia (finger/nose \T\ heel/carvajal - test with eyes open) - 0(Absent) 8. Sensory Loss (pinprick arms/legs/face) - 0(Normal) 9. Best Language: Aphasia (description/naming/reading) - 0(No aphasia) Initials: bs3 Signatures: Dispatcher [employer] EDMS Luca Go MD MD rn Espinosa, [place] oe Peltier, Brian, RN RN Kaylee Dyson1 Mary Lombardi RN RN kd3 Maryann Ibarra RN RN eh3 Uche Anderson MD MD bs3 Sandi Dolan, RN RN pf1
[2023-04-20 09:58] VITALS: TEMP 97.5
[2023-04-20 10:00] VITALS: BP 161/68; O2SAT 97
--- NOTE | 2023-04-22 12:09 | EKG ---
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
== END 2023-04-20 09:34 | disposition home or self-care (01) ==
LOC: ER 05:07
DX: R42 Dizziness and giddiness (principal); R55 Syncope and collapse; I10 Essential (primary) hypertension; Z88.5 Allergy status to narcotic agent
CPT/HCPCS: 93005; 85025; 80048; 36415; 85610; 82947; 85730; 84484; 70450; 70496; 70498; 71045; 99284; Q9967; J8597 ×2; J7040